=== PATIENT | male | born 1945 | race Caucasian/White ===

== ENCOUNTER 2024-10-04 09:15 | Outpatient (CLI) | payer MEDICARE, SELFPAY ==
--- OUTSIDE RECORDS SUMMARY | 2010-02-25 06:47 | XMS_ITS | Continuity of Care Document ---
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 Name Role Phone Kiesha Price MD Unavailable Unavailable Allergies, Adverse Reactions, Alerts Substance Reaction Status Criticality No Known Allergies Active No Inform ation Medications Medication Instructions Dosage Effective Dates (start - stop) Status Comments Zocor 20 mg Tab 1 tab po qd - Active SAW JACKSON (unknown strength) Not Available - Active ASPIRIN 81 MGTABLET 1 pill daily - Active Zocor 20 mg Tab 1 tab po qd - No Longer Active Procedures Procedure Date Office Exam - Limited Comprehensive Metabolic Panel 0 Lipid Panel PSA,total CBC Medication Admin Vaccine against Shingles Comprehensive Metabolic Panel 9 Lipid Panel Hemosure Well Visit (40-64) Office Exam - Intermediate Non-invasive Studies of Upper or Lower E xtremity Arteries Non-invasive Studies of Lower Extremity Arteries Well Visit (40-64) Offic/outpt E&m Estab Mod-hi 2 07 Advance Directives Directive Yes / No Effective Date File Name No Information Encounters Encounter Description Practice Location Reason(s) For Visit Diagnoses Date Provider Providers Copied on Encounter [facility], [address], [place], [place], [id number] , [place] tel: [phone] [facility] No Information 1 Albert Pop. [address] [facility], [address], [place], [place], [id number] , [place]. tel: [phone] [facility], [address], [place], [place], [id number] , [place] tel: [phone] [facility] No Information 0 Claudette Earl. [address] [place] [address], [id number] , [place]. tel: [phone] Referring Provider: Rajat Wilkins MD, [address] [place] [address], [address] . tel:[phone] Office Exam - Limited [facility], [address], [place], [id number] , [place] tel: [phone] [facility] f/u (chief complaint) No Information 0 Claudette Earl. [address] [place] [address], [id number] , [place]. tel: [phone] Referring Provider: Rajat Wilkins MD, [address] [place] [address], [address] . tel:[phone] [facility], [address], [place], [id number] , [place] tel: [phone] [facility] No Information 0 Claudette Earl. [address] [place] [address], [id number] , [place]. tel: [phone] Referring Provider: Rajat Wilkins MD, [address] [place] [address], [address] . tel:[phone] [facility], [address], [id number] , [place] tel: [phone] [facility] No Information 9 Claudette Earl. [address] [place] [address], [id number] , [place]. tel: [phone] Referring Provider: Rajat Wilkins MD, [address] [place] [address], [address] . tel:[phone] [facility], [address] [place] [address], [id number] , [place] tel: [phone] [facility] No Information 9 Claudette Earl. [address] [place] [address], [id number] , [place]. tel: [phone] Referring Provider: Rajat Wilkins MD, [address] [place] [address], [address] . tel:[phone] Well Visit (40-64) [facility], [address] [place] [address], [id number] , [place] tel: [phone] [facility] physical (chief complaint) PHYSICAL/GEN MEDICAL EXAMSCREEN FOR MALIG NEOPLASMS THE R 9 Claudette Earl. [address] [place] [address], [id number] , [place]. tel: [phone] Referring Provider: Rajat Wilkins MD, [address] [place] [address], [address] . tel:[phone] Office Exam - Intermediate [facility], [address], [id number] , [place] tel: [phone] [facility] f/u (chief complaint) No Information 9 Claudette Earl. [address] [place] [address], [id number] , [place]. tel: [phone] Referring Provider: Rajat Wilkins MD, [address] [place] [address], [address] . tel:[phone] [facility], [address] [place] [address], [id number] , [place] tel: [phone] [facility] No Information 8 Claudette Earl. [address] [place] [address], [id number] , [place]. tel: [phone] Referring Provider: Rajat Wilkins MD, [address] [place] [address], [address] . tel:[phone] Well Visit (40-64) [facility], [address] [place] [address], [id number] , [place] tel: [phone] [facility] physical (chief complaint) PHYSICAL/GEN MEDICAL EXAMDIVERTICULOSIS OF COLON W/O MENTION OF HEMORRHAGE 8 Claudette Earl. [address] [place] [address], [id number] , [place]. tel: [phone] Referring Provider: Rajat Wilkins MD, [address] [place] [address], [address] . tel:[phone] Offic/outpt E&m Estab Mod-hi 2 [facility], [address] [place] [address], [id number] , [place] tel: [phone] [facility] f/u (chief complaint) RHINITIS, NASOPHARYNGITIS COMMON COLD Martín-0 7 Claudette Earl. [address] [place] [address], [id number] , [place]. tel: [phone] Referring Provider: Rajat Wilkins MD, [address] [place] [address], [address] . tel:[phone] [facility], [address] [place] [address], [id number] , [place] tel: [phone] [facility] f/u (chief complaint) PROSTRATE HYPERTROPHY,W/ URINE O Apr- 3200 7 Claudette Earl. [address] [place] [address], [id number] , [place]. tel: [phone] Referring Provider: Rajat Wilkins MD, [address] [place] [address], [address] . tel:[phone] [facility], [address] [place] [address], [id number] , [place] tel: [phone] [facility] 3 mo f/u (chief complaint) IMPAIRED FASTING GLUCOSE Dec-1 2-200 6 Claudette Earl. [address] [place] [address], [id number] , [place]. tel: [phone] Referring Provider: Rajat Wilkins MD, [address] [place] [address], [address] . tel:[phone] [facility], [address], [place], [id number] , [place] tel: [phone] [facility] IMPAIRED FASTING GLUCOSE Sep-2 0-200 6 Claudette Earl. [address] [place] [address], [id number] , [place]. tel: [phone] Referring Provider: Rajat Wilkins MD, [address] [place] [address], [address] . tel:[phone] [facility], [address], [id number] , [place] tel: [phone] [facility] physical (chief complaint) HYPERCHOLESTEROLEMI A, PUREBLOOD PRESSURE, ELEVATED READING Sep-1 2-200 6 Claudette Earl. [address] [place] [address], [id number] , [place]. tel: [phone] Referring Provider: Rajat Wilkins MD, [address] [place] [address], [address] . tel:[phone] Family History Family Member Type Diagnosis Age At Onset Father Problem (finding) Arthritis Father Problem (finding) Cancer of the Prostate Mother Problem (finding) hypertension Immunizations Vaccine Date Status Comments Zoster administered Source: New Imm unization Record Zoster administered Source: New Imm unization Record Tdap administered Source: New Imm unization Record Payers Payer name Insurance type Covered libertarian ID Authoriza tion(s) No Information Social History Type Description Quantity Date Captured Comments Sex Male Smoking Status No Information Chief Complaint And Reason For Visit No Information Reason For Referral Reason For Referral No Information History Of Present Illness Encounter Date Complaint History Of Prese nt Illness f/u watching foods m ore carefully. blood wa lipemic. triglyceride over 1000. LDL 60 hdl 27 physical notes swelling i n feet and lower legs -worse lately f/u feeling well. physical Feeling ok f/u feeling ok. f/u last few weeks h arder to keep on diet and exercise program but prior to that was doing well. Has lost 8 lbs since October. Last 10 days back on the program 3 mo f/u goes to gym-3/we eklost 10 lbs. eating smaller portions although same foods. physical had cpe 2001. Hines d sigmoidoscopy at time. dt 11/16. on zocor for total chol of 270. Last test in 05/22 Functional Status Date Functional Assessmen t No Information Instructions Date Instruction Additional Infor mation No Information Assessments Type Assessment Date No Information Patient Care Teams Name Effective Dates (start - stop) Status Members No Information
--- OUTSIDE RECORDS SUMMARY | 2019-04-11 03:00 | XMS_ITS | Continuity of Care Document ---
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 Name Role Phone Mattie Martins MD Unavailable Unavailable Allergies, Adverse Reactions, Alerts Substance Reaction Status Criticality No Known Allergies Active No Inform ation Medications Medication Instructions Dosage Effective Dates (start - stop) Status Comments metformin ER 500 mg tablet,extended release 24 hr - Active terazosin 2 mg capsule - Active potassium chloride ER 10 mEq tablet,extended release - Active azelastine 0.15 % (205.5 mcg) nasal spray spray 1 spray by intranasal route 2 times every day in each nostril 205.5 MCG - Active amoxicillin 875 mg tablet - Active azithromycin 250 mg tablet - Active simvastatin 10 mg tablet take 1 tablet by oral route every day in the evening 10 MG - Active metformin 1,000 mg tablet take 1 tablet by oral route 2 times every day with morning and evening meals 1000 MG - Active TERAZOSIN HCL (unknown strength) take 1 capsule by oral route every day at bedtime Not Available - Active Zyrtec 10 mg tablet take 1 tablet by oral route every day 10 MG - Active Procedures Procedure Date Offic/outpt E&m Estab Mod-hi Offic/outpt E&m Estab Mod-hi Nasal endoscopy, diagnostic, unilateral or bilateral Offic/outpt E&m [facility] Advance Directives Directive Yes / No Effective Date File Name No Information Encounters Encounter Description Practice Location Reason(s) For Visit Diagnoses Date Provider Providers Copied on Encounter Offic/outpt E&m [facility], [address], [place], [id number], tel:[phone] [facility] f/u nasal obstruction (chief complaint) Nasal obstructionSnor ingBody mass index (BMI) 26.0-26.9, adult 0 Eliezer Phelps. [address] [place] [address], [id number] , [place]. tel:[phone] Referring Provider: Jasvir Gutierrez MD, [id number] u[facility], [place], [address]. tel:[phone] Offic/outpt E&m [facility], [address] [place] [address], [id number], [place] tel:[phone] [facility] f/u nasal obstruction (chief complaint) Nasal obstructionSnor ingBody mass index (BMI) 26.0-26.9, adult 0 Eliezer Phelps. [address] [place] [address], [id number] , [place]. tel:[phone] Referring Provider: Jasvir Gutierrez MD, [id number] u[facility], [place], [address]. tel:[phone] Offic/outpt E&m [facility], [address] [place] [address], [id number], [place] tel:[phone] [facility] BACK TENDER Sleep Apnea (chief complaint) SnoringNasal septal deviationNasal obstructionChro daren rhinitisBody mass index (BMI) 26.0-26.9, adult Dec-3 201 9 Eliezer Phelps. [address] [facility] [address], [place], [place], [id number] , [place]. tel: [phone] Referring Provider: Jasvir Gutierrez MD, [id number] u[facility], [place], [address]. tel:[phone] Family History Family Member Type Diagnosis Age At Onset Problem (finding) No family history of He aring disorder Immunizations Vaccine Date Status Comments Flu trivalent adjuvanted pfree administer ed Source: Other Registry PCV13 administered Source: Other R egistry Flu high dose pfree administered Source: Other Registry Payers Payer name Insurance type Covered republican ID Authoriza tion(s) Medicare [id number] [facility] PPO [id number] Social History Type Description Quantity Date Captured Comments Alcohol Use Details Unknown Caffeine Use Details Unknown Tobacco Use Status Ex-cigarette smoker 020 Smoking Status Former smoker Sex Male Vital Signs Date / Time: Height Weight BMI Pulse Rate Blood Pressure Temperature Respiratory Rate Body Surface Area Head Circumference Head Circ. Percentile Wt./Geovani. Percentile BMI percentile Pulse Ox Inhaled Ox 8:03 AM 78.00 in 104.326 kg (230.00 lbs) 26.5 8 kg/m eter (2) 72 /min 130/76 mm[Hg] Chief Complaint And Reason For Visit From encounter dated '04/11/2019 08:00'. f/u nasal obstruction (chief complaint). Description: Patient reports that his symptoms have not improved greatly with Azelastine. He endorses slight improvement with OTC Flonase, improvement with allergy sympotms and decreased nasal inflammation. He reports that his CC is open-mouth breathing at night. He reports that at this time, he is not eager to pursue surgery. He states that the left nostril is more obstructed than his right Reason For Referral Reason For Referral No Information Plan Of Treatment Date Type Action Status Goal H&P. Due on due Goal FOBT. Due on due Goal Colonoscopy. Due on due Goal Lipid panel. Due on due Goal Abdominal ultrasound. Due on due Goal Dietary management education , guidance, and counseling completed Goal Abdominal ultrasound. Due on due Goal Colonoscopy. Due on due Goal H&P. Due on due Goal FOBT. Due on due Goal Lipid panel. Due on due Goal Lipid panel. Due on due Goal FOBT. Due on due Goal Abdominal ultrasound. Due on due Goal H&P. Due on due Goal Colonoscopy. Due on due Goal Dietary management education , guidance, and counseling completed Goal Abdominal ultrasound. Due on due Goal Colonoscopy. Due on due Goal FOBT. Due on due Goal H&P. Due on due Goal Lipid panel. Due on due Goal Dietary management education , guidance, and counseling completed Goal Tobacco cessation counseling completed History Of Present Illness Encounter Date Complaint History Of Prese nt Illness f/u nasal obstruction Patient re ports that his symptoms have not improved greatly with Azelastine. He endorses slight improvement with OTC Flonase, improvement with allergy sympotms and decreased nasal inflammation. He reports that his CC is open-mouth breathing at night. He reports that at this time, he is not eager to pursue surgery. He states that the left nostril is more obstructed than his right f/u nasal obstruction The patien t reports that his symptoms have not improved since the previous visit. He has been compliant using Azelastine, which he states improves his symptoms. His reports that he snores. Denies previous sinus surgery or using OTC Flonase. BACK TENDER Sleep Apnea Patient reports snoring while sleeping, witnessed by his . His previous sleep study, obtained at [facility], indicated that he did not have sleep apnea. Sleep study performed 3 years did reveal sleep apnea to which he was prescribed a CPAP. After using CPAP, he did not notice a significant difference in lethargy and snoring thru the day. He was also recommended Ritalin to aid with patient's daytime drowsiness. Intermittently endorses restlessness will sleeping. He reports difficulty breathing adequately at night through his nose in addition to through out the day and while exercising. He has tried a chin strap and Breathe Right Strips for this. Denies prior nasal surgery, nasal fracture, use of Flonase Functional Status Date Functional Assessmen t Pain Score 0/10 Instructions Date Instruction Additional Infor mation -Sleep with upper to rso elevated -As above Related to Snoring -Continue to use William nase (OTC) -Continue nasal saline rinses -Discontinue Azelastine -Advsied to tighten chin strap at night to avoid mouth breathing Related to Nasal obstruction Dietary management e ducation, guidance, and counseling Related to Body mass index (BMI) 26.0-26.9, adult - As above Related to Snori ng - Follow up in 1 thu - Advised patient to use OTC Flonase and Azelastine Related to Nasal obstruction Dietary management e ducation, guidance, and counseling Related to Body mass index (BMI) 26.0-26.9, adult - Obtain Azelastine from pharmac y Related to Chronic rhinitis - OTC Nasal Saline R inses recommended daily- OTC Flonase recommended, 1 spray per nostril twice daily - Follow up in 1 month Related to Nasal obstruction Dietary management e ducation, guidance, and counseling Related to Body mass index (BMI) 26.0-26.9, adult Assessments Type Assessment Date assessment Nasal obstruction assessment Snoring assessment Body mass index (BMI) 26.0-26.9, adult impression Physical exam reveal ed bilateral septal curvature and widening of the septum, small blood and mucus on the left side, no nasal valve collapse noted. Disccused treatment options including surgery. Questions solicited and answered. Patient is not eager to pursue surgery at this time. Advised patient to use OTC Flonase 2 sprays once a day, direct spray outwards towards ear. Stop Azelastine spray since patient is not improving. Advised patient to tighten chin strap in order to keep mouth closed at night. impression Subjectively positiv e. Advised patient that treating his nasal inflammation will improve his snoring. Advised patient to sleep with his upper torso elevated Mental Status Date Cognitive Assessment Normal Orientation Patient Care Teams Name Effective Dates (start - stop) Status Members No Information
--- OUTSIDE RECORDS SUMMARY | 2020-06-06 05:00 | XMS_ITS | Continuity of Care Document ---
Author Organization [facility] Address [address] [place] [address] [address], [place] [address] Phone Care Team Providers Care Adoption Manager Name Role Phone Kraig Persaud MD Unavailable Unavailable Allergies, Adverse Reactions, Alerts Substance Reaction Status Criticality No Known Allergies Active No Inform ation Medications Medication Instructions Dosage Effective Dates (start - stop) Status Comments metformin ER 500 mg tablet,extended release 24 hr take 1 tablet by ORAL route 2 times every day with breakfast and dinner 500 MG - Active simvastatin 10 mg tablet take 1 tablet by oral route every day in the evening 10 MG - Active ZYRTEC (unknown strength) Not Available - Active TAMSULOSIN HCL (unknown strength) Not Available - Active AZELASTINE HCL (unknown strength) Not Available - Active Procedures Procedure Date Offic/outpt E&m Estab Minor Anoscopy; Dx W/wo Specmn (oct 1 Offic/outpt E&m Estab Low-mod 1 Colonoscopy Flex; W/bx 1/mx Moderate Sedation Service For Gastro Feb Moderate Sedation Service Over 15 Mins J Anoscopy; Dx W/wo Specmn (oct 9 Offic/outpt E&m New Mod-hi Offic/outpt E&m Estab Minor 10 16 Procsigmoscopy Rigid; Dx (oct 6 Offic/outpt E&m Estab Low-mod 6 Advance Directives Directive Yes / No Effective Date File Name No Information Encounters Encounter Description Practice Location Reason(s) For Visit Diagnoses Date Provider Providers Copied on Encounter Offic/outpt E&m Estab Minor [facility], [address] [facility] [place], [place], [place], [id number], [place] tel:[phone] [facility] f/u Diarrhea* (chief complaint) Diarrhea, unspecifiedHx of colonic polyps 1 Hung Cornell. [address], [place], [place], [id number] , [place]. tel:[phone] Referring Provider: Rajat Wilkins MD, [address] [place] [address], [address] . tel:[phone] Offic/outpt E&m Estab Low-mod [facility], [address] [place] [address], [address], [place], [place], [id number], [place] tel:[phone] [facility] Irregular bowel movement* (chief complaint) Diarrhea, unspecifiedHx of colonic polyps 1 Hung Cornell. [address], [place], [place], [id number] , [place]. [phone] Referring Provider: Rajat Wilkins MD, [address] [place] [address], [address] . tel:[phone] [facility], [address] [place] [address], [address], [place], [place], [id number], [place] tel:[phone] [facility] No Information 0 Hung Cornell. [address], [place], [place], [id number] , [place]. [phone] Referring Provider: Rajat Wilkins MD, [address] [place] [address], [address] . tel:[phone] Offic/outpt E&m New Mod-hi [facility], [address] [facility] [place] [address], [place], [place], [id number], [place] tel:[phone] [facility] Bowel movements * (chief complaint) Change in bowel habitHx of colonic polyps 9 Ng MD Cornell. [address], [place], [place], [id number] , [place]. tel:[phone] Referring Provider: Rajat Wilkins MD, [address] [place] [address], [address] . tel:[phone] Offic/outpt E&m Estab Minor 10 [facility], [address] [facility] [place] [address], [place], [place], [id number], [place] tel:[phone] [facility] change in bowel habits* (chief complaint) Change in bowel habitHx of colonic polyps 6 Hung Cornell. [address], [place], [place], [id number] , [place]. tel:[phone] Referring Provider: Rajat Wilkins MD, [address] [place] [address], [address] . tel:[phone] [facility], [address] [place] [address], [address], [place], [place], [id number], [place] tel:[phone] [facility] Default No Information 6 Provider [facility]. . Offic/outpt E&m Estab Low-mod [facility], [address] [facility] [place], [place], [place], [id number], [place] tel:[phone] [facility] Change in bowel habits (chief complaint) Change in bowel habitHx of colonic polyps 6 Hung Cornell. [address], [place], [place], [id number] , [place]. [phone] Referring Provider: Rajat Wilkins MD, [address] [facility], [place], [address] . tel:[phone] Family History Family Member Type Diagnosis Age At Onset Father Problem (finding) No history of Cancer, c olon Payers Payer name Insurance type Covered alliance party ID Authormaria dolores guerrero(s) Medicare MB [id number] [facility] [place] PPO [id number] Social History Type Description Quantity Date Captured Comments Alcohol Use Details 1 drink daily Caffeine Use Details Unknown Tobacco Use Status Ex-cigarette smoker Smoking Status Former smoker Smoking Tobacco Use Details Cigarette: Age Stopped: 17 Cigarette: 40 Cigarettes per day Sex Male Vital Signs Date / Time: Height Weight BMI Pulse Rate Blood Pressure Temperature Respiratory Rate Body Surface Area Head Circumference Head Circ. Percentile Wt./Geovani. Percentile BMI percentile Pulse Ox Inhaled Ox 10:03 AM 77.00 in 107.048 kg (236.00 lbs) 27.9 9 kg/m eter (2) 140/68 mm[Hg] 98.00 F Chief Complaint And Reason For Visit From encounter dated '06/06/2020 10:00'. f/u Diarrhea* (chief complaint). Description: doing better. OFF METFORMIN. NO N V F C. BM REGULARBMFORMED OCC SOFTER NO [id number] 75/6 [id number] 100/5 RY/TICS Reason For Referral Reason For Referral No Information Plan Of Treatment Date Type Action Status Goal Colonoscopy. Due on due Goal Abdominal ultrasound. Due on due Goal H&P. Due on due Goal Lipid Panel. Due on due Goal FOBT. Due on due Goal Colonoscopy. Due on due Goal Abdominal ultrasound. Due on due Goal H&P. Due on due Goal Lipid Panel. Due on 021 due Goal FOBT. Due on due Goal Colonoscopy. Due on due Goal FOBT. Due on due Goal Abdominal ultrasound. Due on due Goal Lipid Panel. Due on 019 due Goal H&P. Due on due Goal Abdominal ultrasound. Due on due Goal Lipid Panel. Due on due Goal FOBT. Due on due Goal H&P. Due on due Goal Colonoscopy. Due on due Future Order: Lab Order CULTURE STOOL ([id number]), Sent on: Sent Future Order: Lab Order O+P x3 ([id number]) , Sent on: Sent Future Order: Lab Order CDT ([id number]), S ent on: Sent History Of Present Illness Encounter Date Complaint History Of Prese nt Illness f/u Diarrhea* doing better. OF F METFORMIN. NO N V F C. BM REGULARBM FORMED OCC SOFTER NO [id number] 75/6 [id number] 100/5 RY/TICS Irregular bowel movement* HAS EX PLOSIVE DIARRHEA. OCCURS 3-7/DAY. INCREASED FIBER AND FLUIDS. HAS YOGURT AND MILK WITH CEREAL. BMS ARE LOOSE. NO ABDOMINAL PAIN CRAMPS NO BLEEDING. NO STOOL TESTING DONE. ON SIMVOSTATIN. ON METFORMIN. 20 75/6 [id number] 100/5 RY/TICS Bowel movements * The patient chambers s:Nausea vomiting fevers or chills? none2-3 bowel movements per day.Irregular bowel movements? noneChange in bowel habits? 2 MONTH AGO CHUNKY WATERY BMS URGENCY AND NOW RESOLVED. NO TRAVEL NO UNUSUAL FOODS. WAS ON ABX June ZPAK. IMPROVED IN 3 WEEKS. Stools are normal.Bloating, gas? noneAbdominal pain? 2 MONTH AGODiarrhea? DURING RECENT EPISODEConstipation? noneRectal bleeding? noneRectal pain? noneSwelling? noneProtrusion? noneAnal drainage? noneAnorectal itching? noneFecal incontinence? nonePatient eats a MILD MOD fiber diet. OAT BRANPrior anorectal problems? none Prior colon problems? POLYPSColonoscopy in the past? 14 100/5 RY/TICSTakes anorectal medicines? none change in bowel habits* DIARRHEA ; WAS TAKING METFORMIN. NOW ON ENTERIC SLOW RELEASE METFORMIN; OCC EXPLOSIVE BM WITH SPICY FOOD; GOOD BOWEL CONTROL; BMS ARE FIRMER. Change in bowel habits The patie nt has:Nausea vomiting fevers or chills? none2-3 bowel movements per day. SOFT-LOOSE NOW 5-7Irregular bowel movements? noneChange in bowel habits? PAST 4-6 WEEKS EXPLOSIVE BMSStools areMUSH/CHUNKS; FLUIDS; URGENCYBloating, gas? noneAbdominal pain? noneDiarrhea? LOOSE BMSConstipation? noneRectal bleeding? noneRectal pain? noneSwelling? noneProtrusion? OCC WITH FREQUENT BMAnal drainage? noneAnorectal itching? noneFecal incontinence? none URGENCY; 2 EPISODES INCONTINENCEPatient eats a MILD fiber diet. V>F; SHREDDED WHEAT; OATMEAL ARTICHOKES. DAIRY PRODUCTS. Prior anorectal problems? none Prior colon problems? HYPColonoscopy in the past? 14 100/5 RY/TICSTakes anorectal medicines? noneMETFORMIN STARTED 2 MONTHS AGO; NO TRAVEL; NO ILL CONTACTS. Functional Status Date Functional Assessmen t No Information Instructions Date Instruction Additional Infor mation RESOLVED CONT HFD FLUIDS Related to Diarrhea, unspecified CS 2023 Related to Hx of colonic polyps patient education an d instructions provided by Dr. Persaud Related to Diarrhea, unspecified CS 2024 Related to Hx of colonic polyps patient education an d instructions provided by Dr. Persaud Related to Diarrhea, unspecified Colonoscopy recommen ded. Discussed risks including but not limited to bleeding, infection, perforation, polypectomy, and anesthetic risks. Patient opts to proceed. All questions answered. Given preparation instructions. Instructed not to take ASA, NSAIDS, PLAVIX FOR 10 DAYS, COUMADIN FOR 4 DAYS. INFORMED TO TAKE HALF THE DOSAGE OF RX FOR DIABETES ON DAY OF PREP AND NO DIABETES RX ON MORNING OF CS.MG CITRATE PREP GIVEN. Related to Hx of colonic polyps NOW RESOLVED. POSSIB LY RELATED TO ABX ?C DIFF. REC PROBIOTICS WITH ABX IN THE FUTURE. Related to Change in bowel habit patient education an d instructions provided by Dr. Persaud Related to Change in bowel habit DOING BETTER; CONT H FD; AVOID SPICY FOODS Related to Change in bowel habit FU 3 YEARS SOONER PRN Related to Hx of colonic polyps patient education an d instructions provided by Dr. Persaud Related to Hx of colonic polyps HFD FLUIDS; BULKING AGENTS; INFORMED POSSIBILITIES RE CHANGE IN BOWEL HABITS INCLUDING DIETARY, MEDICATIONS (METFORMIN), INFLAMMATORY/NEOPLASTIC CHANGES; PT WILL DW DR WILKINS RE DC METFORMIN; HOLD DAIRY PRODUCTS; INCREASE FIBER; IF EXPLOSIVE BMS CONTINUE WOULD REC CS TO REEVALUATE; FU 6 WEEKS; SOONER PRN Related to Change in bowel habit CS IN 4 YEARS. Related to Hx of colonic polyps Assessments Type Assessment Date assessment Diarrhea, unspecified 1 assessment Hx of colonic polyps Patient Care Teams Name Effective Dates (start - stop) Status Members No Information
--- OUTSIDE RECORDS SUMMARY | 2021-05-30 07:01 | XMS_ITS | Continuity of Care Document ---
Author Organization Momo Gordon MD, [facility] Address [id number] [place] [address] Phone Care Team Providers Care Manager Part Name Role Phone Evan OCONNOR, Momo Unavailable Unavailable Allergies, Adverse Reactions, Alerts Substance Reaction Status Criticality No Known Allergies Active No Inform ation Medications Medication Instructions Dosage Effective Dates (start - stop) Status Comments tamsulosin 0.4 mg capsule take 2 capsule by oral route every day 1/2 hour following the same meal each day 0.8 MG - Active Procedures Procedure Date OFFICE VISIT NEW PAT. Advance Directives Directive Yes / No Effective Date File Name No Information Encounters Encounter Description Practice Location Reason(s) For Visit Diagnoses Date Provider Providers Copied on Encounter Momo Gordon MD, [facility], [address] [place] [address], [id number], [place] tel:[phone] Momo Gordon MD, [facility]. No Information 2 Evan Barr. [address] [place] [address], [id number], [place]. tel:[phone] Referring Provider: Shana Reagan MD, [address] [facility] [address], [place], [address] . tel:[phone] OFFICE VISIT NEW PAT. Momo Gordon MD, [facility], [address] [place] [address], [place], [place], [id number], [place] tel:[phone] Momo Gordon MD, [facility] New Patient (chief complaint) Interstitial lung diseasePulmonary nodulesSleep apnea, obstructive Evan Barr. [address] [facility] [address], [place], [place], [id number], [place]. tel:[phone] Referring Provider: Shana Reagan MD, [address] [facility] [address], [place], [address] . tel:[phone] Family History Family Member Type Diagnosis Age At Onset Mother Problem (finding) Father Problem (finding) Payers Payer name Insurance type Covered republican ID Authoriza tion(s) Medicare [id number] [id number] Social History Type Description Quantity Date Captured Comments Alcohol Use Details Unknown Caffeine Use Details Unknown Tobacco Use Status No Information Smoking Status No Information Sex Male Chief Complaint And Reason For Visit No Information Reason For Referral Reason For Referral No Information Plan Of Treatment Date Type Action Status Goal Lipid Panel. Due on due Goal Colonoscopy. Due on due Goal Abdominal ultrasound. Due on due Goal FOBT. Due on due Goal H&P. Due on due Goal Colonoscopy. Due on due Goal Lipid Panel. Due on due Goal FOBT. Due on due Goal H&P. Due on due Goal Abdominal ultrasound. Due on due Future Order: Lab Order SED rate , automated ([id number]), Sent on: Sent Future Order: Lab Order RA FACTOR ([id number]), Sent on: Sent Future Order: Lab Order C-REACTI VE PROTEIN ([id number]), Sent on: Sent Future Order: Lab Order SCL-70 A NTIBODY ([id number]), Sent on: Sent Future Order: Lab Order CCP ([id number]), S ent on: Sent Future Order: Lab Order Myositis AssessR plus Linda-1 Antibodies ([id number]), Sent on: Sent History Of Present Illness Encounter Date Complaint History Of Prese nt Illness New Patient The symptoms beg an 40 years ago and generally lasts 40 Years. The symptoms are reported as being moderate. The symptoms occur randomly. Aggravating factors include respiratory infections. Relieving factors include Antibiotics or steroids. Associated symptoms include cough, fever. Pertinent negatives include wheezing, weight loss. He states the symptoms are chronic and are fairly controlled. Here with his . He spends 6 months a year in [place] in [place] farm area, and is in [place] usually early January through early June. He returns every 6 weeks to the local area.Since age 32 he has had bronchitis whenever he would get a cold, 2-3 times a year at first and now 1-2 times a year. In his 30s and 40s he would get high fever and delierium, not not as high a fever. He would usually get antibiotics, but he had a steroid once in March 2018 after a trip to [place], once in 2016 after a trip to [place], and as well after an episode on . His PCR Covid test was negative at the time. With these episodes, he has been given inhalers but not in years. He has never definitively been said to have pneumonia, and as a child did not have pneumonias or asthma problems. He is not short of breath and is able to exercise usually, he had stopped for a while but just started up again. He has not had fevers, chills or drenching sweats Since the episode in January. He has not coughed up any blood and has not lost significant amounts of weight.In early February after recovering from his January episode of coughing, a chest x-ray was performed and suggested possible interstitial disease which led to a CT scan. Because of this, he was referred to me.He is on longer coughing. He has no more mucus. He is not short of breath except up and down stairs, which he believes is because he has not been exercising recently. and his seems to think he did have some exertional dyspnea up and down stairs before, although if so he was unaware of it. He himself notices that he gets short of breath carrying heavier objects. He is not wheezing. He feels fine.He spends 6 months out of the year for the last 5-10 years at a second home in [facility] [place] in [place]. 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 He has had episodes of bronchitis since his 30s. In his 30s and 40s he often have high fevers and delirium with these episodes. He usually be treated with antibiotics. They would happen several times a year. More recently they only happen 2-3 times a year, and again are usually treated with antibiotics although a couple of times he had some steroids for them. The most recent episode was in January. He did not have Covid based upon PCR testing. He had cough and mucus along with a lower grade fever. He received steroids for this episode but not antibiotics. Due to the findings on his CT scan, he was referred to see me. He now feels his normal self. He has some very minor shortness of breath carrying heavy objects and perhaps up and down stairs, he is just about to get back into exercising. He currently has no cough or mucus. He has not lost weight. He feels his normal self. He notes that the sister has bronchiectasis for many years, she lives in [place].PULMONARY AND MEDICAL HISTORY:Interstitial Lung DiseaseSeasonal AllergiesSleep ApneaRestless Leg SyndromeLiver DiseaseBPHPULMONARY MEDICATIONS:S/P CPAP, stopped around 2018, borderline diseaseNON PULMONARY MEDICATIONS: Tamsulosin 0.8 mg dailySMOKING: Ages 21 to 24, 1.5 PPD (4.5 pack years)EXACERBATIONS:Jan 2021, PredPFTs FEV1 FVC FEV1/FVC FEF 25- 3.66L(93%) 4.91L(91%) 75% 2.78L(96%) NormalSLEEP EIQPXPS99/3/19: AHI 0.5OCIMETRY, O2 SATURATION on room air04/01/21: 95%X-RAYS:CT Chest 02/23/20 [facility]: Peripheral/subpleural interstitial thickening. These findings are most pronounced at the lung bases. Possible but not definite traction bronchiectasis. No honeycombing. 5 mm nodule left lower lobe (series 5 image 67). 3-4 mm Lingular nodule. 1.0 cm short axis right infrahilar and 0.8 cm short axis lymph nodesCXR 02/19/21 [facility]: Peripheral and basilar predominant reticular interstitial changes, most likely reflecting chronic interstitial lung disease. No prior imaging available for dabvylucmy52/11/17: Lungs clearLABS:02/20/21: BUN/Cr 13/1.07, eGFR 68, LDTs nl, UA benign, Vit D 20.6, HgA1C 5.8, PSA 1.1 WBC 7200, Hg 15.0VACCINES: Flu Shot Oct 2020. Pneumovax 23 around 2007. Moderna, Covid Vaccine Feb 2020, Mar 2020, booster OctERTINENT PHYSICAL FINDINGS: Subtle basilar velcro rales, no wheezes. No murmurs. No edema Functional Status Date Functional Assessmen t No Information Instructions Date Instruction Additional Infor mation No Information Assessments Type Assessment Date No Information Patient Care Teams Name Effective Dates (start - stop) Status Members No Information
--- OUTSIDE RECORDS SUMMARY | 2023-06-03 04:30 | XMS_ITS ---
Author Organization [facility] Address [address] [place] [address] Care Team Providers Care Systems Lead Name Role Phone Shana HOYOS Primary Care Provider Roger Niño, Donal Unavailable [phone] REASON FOR VISIT se Encounters Encounter Location Date Provider Diagnosis [facility] [address] [place] [address] 06/03/2023 Donal Berry Plan Of Treatment No Information Progress Notes * DANIELLERoney Ramandeep JrDOB:[birth year] (79 yo M)Acc No.[id number]:06/03/2023 Patient: Roney GOMEZ Provider: Karen Berry M.D., RupertoCChemaPChema, F.A.C.C. :1945 A ge:77 Y S ex:Male Date:06/03/2023 Address:[address] [place], [place] [phone] Pcp:Shana HOYOS Subjective: * Chief Complaints: * 1 . Se. * Medical History: Objective: * Vitals: Assessment: Plan: * Treatment: * Images: * Electronic signature of Chidi Berry M.D., MD on 10/04/2024 at 07:36 AM PDT Sign off status: Pending * Provider: Karen Berry M.D., RupertoCChemaPChema, F.A.C.C. Date: 0 06/03/2023 Generated for Printing/Faxing/eTransmitting on: 0 10/04/2024 07:36 AM PDT
--- OUTSIDE RECORDS SUMMARY | 2023-08-25 05:15 | XMS_ITS ---
Author Organization [facility] Address [address] [place] [address] Care Team Providers Care Hand Plate Stacker Name Role Phone Shana HOYOS Primary Care Provider Roger Niño, Donal Unavailable [phone] REASON FOR VISIT 3m/fu/labs Encounters Encounter Location Date Provider Diagnosis [facility] [address] [place] [address] 08/25/2023 Donal Berry Plan Of Treatment No Information Progress Notes * Roney PENA JrDOB:[birth year] (79 yo M)Acc No.[id number]:08/25/2023 Progress Notes Patient: Roney GOMEZ Provider: Karen Berry M.D., RupertoCChemaPChema, F.A.C.C. :1945 A ge:77 Y S ex:Male Date:08/25/2023 Address:[address] [place] [id number] Pcp:Shana HOYOS Subjective: * Chief Complaints: * 1 . 3m/fu/labs. * Medical History: Objective: * Vitals: Assessment: Plan: * Treatment: * Images: * Electronic signature of Chidi Berry M.D., MD on 10/04/2024 at 07:35 AM PDT Sign off status: Pending * Provider: Karen Berry M.D., RupertoCChemaPChema, F.A.C.C. Date: 0 08/25/2023 Generated for Printing/Faxing/eTransmitting on: 0 10/04/2024 07:35 AM PDT
--- OUTSIDE RECORDS SUMMARY | 2024-01-16 04:00 | XMS_ITS ---
Author Organization [facility] Address [address] [place] [address] Care Team Providers Care Marshmallow Runner Name Role Phone Dr. Nida Castillo Primary Care Provider [phone] Migration, Provider Unavailable Unavailable REASON FOR VISIT [facility] Encounters Encounter Location Date Provider Diagnosis [facility] [address] [place] [address] 01/16/2024 Provider Migration Plan Of Treatment Medication Medication Name Sig Start Date Stop Date Notes Simvastatin 10 MG Tablet 1 Oral every da y; Duration: 0 11/03/2022 11/03/2022 EXEL SYRINGE 3 mL 25 gauge x 1 SYRINGE, EMPTY DISPOSABLE MISCELLANEOUS; Duration: 0 01/12/2024 01/12/2024 *Reorder from [employer] for eRx and Interaction Alerts* Tamsulosin HCl 0.4 MG Capsule 2 Oral every day; Duration: 0 12/04/2021 12/16/2023 ,discontinuereason:D iscontinued ECLIPSE SYRINGE 3 mL 25 gauge x 1 SYRINGE, EMPTY DISPOSABLE MISCELLANEOUS; Duration: 90 11/03/2022 10/28/2023 *Reorder from [employer] for eRx and Interaction Alerts* metFORMIN HCl ER 500 mg Tablet Extended Release 24 Hour 1 Oral two times a day; Duration: 0 12/04/2021 12/04/2021 ,discontinuereason:D iscontinued Vitamin D (Ergocalciferol) 1.25 MG (96199 UT) Capsule 1 Oral once a week; Duration: 0 10/24/2022 10/24/2022 Rx Refill Request,discontinuer elsy:Refilled Cyanocobalamin 1000 MCG/ML Solution 1 Injection biweekly; Duration: 90 07/27/2023 07/27/2023 Rx Refill Request,discontinuer elsy:Refilled Next Appt Details Provider Name:Dr. Nida fierro, 12/22/2024 11:15:00 AM, [facility], [place], [address], [phone] Provider Name:Dr. Nida fierro, 07/27/2025 10:00:00 AM, [facility], [place], [address], [phone] Progress Notes * Roney PENA HDOB:[birth year] (79 yo M)Acc No.[id number]:01/16/2024 Patient: Roney GOMEZ :1945 A ge:78 Y S ex:Male Phone: Address:[address] [place] [address], [place], [address] * Refills Stop Cyanocobalamin Solution, 1000 MCG/ML, Injection, 26, 1, biweekly, 90 Stop Simvastatin Tablet, 10 MG, Oral, 1, every day, 0 Stop EXEL SYRINGE SYRINGE, EMPTY DISPOSABLE, 3 mL 25 gauge x 1, MISCELLANEOUS, 1, 0 Stop Tamsulosin HCl Capsule, 0.4 MG, Oral, 2, every day, 0 Stop ECLIPSE SYRINGE SYRINGE, EMPTY DISPOSABLE, 3 mL 25 gauge x 1, MISCELLANEOUS, 6, 90 Stop EXEL SYRINGE SYRINGE, EMPTY DISPOSABLE, 3 mL 25 gauge x 1, MISCELLANEOUS, 26, 0 Stop Cyanocobalamin Solution, 1000 MCG/ML, Injection, 5, 0 Stop EXEL SYRINGE SYRINGE, EMPTY DISPOSABLE, 3 mL 25 gauge x 1, MISCELLANEOUS, 3, 0 Stop EXEL SYRINGE SYRINGE, EMPTY DISPOSABLE, 3 mL 25 gauge x 1, MISCELLANEOUS, 26, 0 Stop Cyanocobalamin Solution, 1000 MCG/ML, Injection, 3, 1, Monthly, 90 Stop Cyanocobalamin Solution, 1000 MCG/ML, Injection, 1, 1, Monthly, 30 Stop Simvastatin Tablet, 10 MG, Oral, 90, 1, every day, 0 Stop Cyanocobalamin Solution, 1000 MCG/ML, Injection, 26, 1, biweekly, 90 Stop EXEL SYRINGE SYRINGE, EMPTY DISPOSABLE, 3 mL 25 gauge x 1, MISCELLANEOUS, 26, 0 Stop Cyanocobalamin Solution, 1000 MCG/ML, Injection, 0 Stop EXEL SYRINGE SYRINGE, EMPTY DISPOSABLE, 3 mL 25 gauge x 1, MISCELLANEOUS, 0 Stop Vitamin D (Ergocalciferol) Capsule, 1.25 MG (46588 UT), Oral, 12, 1, once a week, 0 Stop metFORMIN HCl ER Tablet Extended Release 24 Hour, 500 mg, Oral, 1, two times a day, 0 Subjective: * Chief Complaints: * E [facility] * * Date:
--- OUTSIDE RECORDS SUMMARY | 2024-01-17 04:00 | XMS_ITS ---
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 Nida Castillo Primary Care Provider [phone] Migration, Provider Unavailable Unavailable Allergies No Known Allergies REASON FOR VISIT [facility] Medications Medication SIG (Take, Route, Frequency, Duration) Notes Start Date End Date Status Fexofenadine HCl 180 MG Tablet 1 Oral every day; Duration: 0 12/04/2021 Active Vitamin D3 25 MCG (1000 UT) Capsule 2 Oral every day; Duration: 0 12/04/2021 Active Azelastine HCl 137 MCG/SPRAY Solution Nasal; Duration: 0 12/04/2021 Act latha Cyanocobalamin 1000 MCG/ML Solution 1 Injection biweekly; Duration: 90 01/12/2024 04/10/2024 Active Social History Social History Additional Details Category Social Info Options Details Migrated Social History Migrated Social History Tobacco history:Former smoker ,notes : 2 ppd x 4 yrs , Marital status: Encounters Encounter Location Date Provider Diagnosis [facility] [address] [place] [address] 01/17/2024 Provider Migration Plan Of Treatment Next Appt Details Provider Name:Dr. Nida fierro, 12/22/2024 11:15:00 AM, [address] [place] [address] [place], [address], [phone] Provider Name:Dr. Nida fierro, 07/27/2025 10:00:00 AM, [employer] [facility], [place], [address], [phone] Progress Notes * Roney PENA HDOB:[birth year] (79 yo M)Acc No.[id number]:01/17/2024 Patient: Roney GOMEZ :1945 A ge:78 Y S ex:Male Phone: Address:[facility], [place], [address] Subjective: * Chief Complaints: * E MR[facility] * Surgical History: knee surgery ,notes : arthroscopy, left wrist surgery ,notes : right, 2014 hand surgery ,notes : bilateral hand surgery * Family History: F ather: Prostate Cancer. * Social History: M igrated Social History: M igrated Social History: Tobacco history:Former smoker ,notes : 2 ppd x 4 yrs,Marital status:. * Medications: T akingAzelastine HCl 137 MCG/SPRAY Solution Nasal Cyanocobalamin 1000 MCG/ML Solution 1 Injection biweekly , stop date 04/10/2024Fexofenadine HCl 180 MG Tablet 1 Oral every day Vitamin D3 25 MCG (1000 UT) Capsule 2 Oral every day Taking Azelastine HCl 137 MCG/SPRAY Solution Nasal Taking Cyanocobalamin 1000 MCG/ML Solution 1 Injection biweekly , stop date 04/10/2024Taking Fexofenadine HCl 180 MG Tablet 1 Oral every day Taking Vitamin D3 25 MCG (1000 UT) Capsule 2 Oral every day * Allergies: N .K.D.A. * * Date:
--- OUTSIDE RECORDS SUMMARY | 2024-04-19 08:45 | XMS_ITS | Continuity of Care Document ---
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 Name Role Phone Shana Reagan MD Unavailable Unavailable Allergies, Adverse Reactions, Alerts Substance Reaction Status Criticality No Known Allergies Resolved No Inform ation Medications Medication Instructions Dosage Effective Dates (start - stop) Status Comments rosuvastatin 5 mg tablet take 1 tablet by oral route every day 5 MG - Active azelastine 137 mcg (0.1 %) nasal spray aerosol spray 2 spray by intranasal route 2 times every day in each nostril - Active tamsulosin 0.4 mg capsule take 2 capsule by oral route every day 1/2 hour following the same meal each day 0.8 MG - Active Shingrix (PF) 50 mcg/0.5 mL intramuscular suspension, kit inject 0.5 milliliter by intramuscular route once once repeat 0.5 mL dose 2 to 6 months after the first dose (total of 2 doses) 50 MCG - Active Vitamin D3 4,000 unit capsule - Active simvastatin 10 mg tablet TAKE 1 TABLET BY MOUTH EVERY DAY IN THE EVENING - No Longer Active Procedures Procedure Date Annual wellness visit, includes a person alized pre Offic/outpt E&m Estab Low-mod Complexity Add-on E/M visit Offic/outpt E&m Estab Low-mod 4 Complexity Add-on E/M visit Annual wellness visit, includes a person alized pre Annual wellness visit, includes a person alized pre Annual wellness visit, includes a person alized pre Video Visit 52588 Annual wellness visit, includes a person alized pre Admin Pneumococ Vac-no Phys Sr 19 Prevnar 13 Admin Of Flu Vaccine Influenza Vaccine, Inactivated Subunit, Adjuvanted Offic/outpt E&m Estab Low-mod 9 Ecg-routine 12 Lead; W/intrpt 8 Offic/outpt E&m Estab Mod-hi 2 18 Annual wellness visit, includes a person alized pre Offic/outpt E&m Estab Low-mod 8 Executive Audiogram Executive Vision Screening Executive Treadmill Stress Test 017 Offic/outpt E&m Estab Mod-hi 2 17 Offic/outpt E&m Estab Low-mod 6 Offic/outpt E&m Estab Low-mod 6 Offic/outpt E&m Estab Low-mod 6 Offic/outpt E&m Estab Mod-hi 15 Offic/outpt E&m Estab Low-mod 5 Screening Test Pure Tone Air O 15 Executive Spirometry Executive Treadmill Stress Test 015 Executive Vision Screening Executive Blood Draw Offic/outpt E&m Estab Low-mod 4 Offic/outpt E&m Estab Low-mod 4 Pneumococcal Polysacch Vac-chela 14 Admin Pneumococ Vac-no Phys Sr 14 FOBT Medication Admin Vaccine against Tdap Well Visit (>65) Offic/outpt E&m Estab Mod-hi 2 11 EKG Office Exam - Intermediate Office Exam - Limited Lipid Panel Comprehensive Metabolic Panel 0 CBC PSA,total Vaccine against Shingles Medication Admin Comprehensive Metabolic Panel 9 Lipid Panel Hemosure [...] Providers Copied on Encounter Offic/outpt E&m Estab Low-mod Comprehensiv e Care [facility], [address], [address], [place], [address], tel:[phone] [facility] *awv (chief complaint)Me dicare preventive (chief complaint) Medicare annual wellness visit, subsequentTr emor of both handsRestles s legPure hypercholest erolemia, unspecifiedI mpaired fasting glucoseILD (interstitia l lung disease)Pros smith cancer 5 Tez Saldana. [address], [id number], [place]. tel:[phone] Referring Provider: Shana Reagan MD, [address] [facility] [address], [place], [address] . tel:[phone] Comprehensiv e [facility], [address], [address], [place], [address], tel:[phone] Comprehensi ve [facility] Prostate cancerPure hypercholest erolemia, unspecifiedI mpaired fasting glucoseILD (interstitia l lung disease) 5 Albert Pop. [address], [address], [place], [id number], [place]. tel:[phone] Referring Provider: Shana Reagan MD, [address] [facility] [address], [place], [address] . tel:[phone] Offic/outpt E&m Estab Low-mod Comprehensiv e Care [facility], [address] [place] [address], [address] [place] [address], [address], tel:[phone] [facility] *pre-op (chief complaint) Prostate cancerPre-op evaluation 4 Tez Saldana. [address], [id number], [place]. tel:[phone] Referring Provider: Shana Reagan MD, [address], [address] . tel:[phone] Comprehens e Care [facility], [address] [place] [address], [address] [place] [address], [address], [place] tel:[phone] [facility] * Wellness (chief complaint)Wi dicare preventive (chief complaint) Medicare annual wellness visit, subsequentIm paired fasting glucosePure hypercholest erolemia, unspecifiedV itamin D deficiencyLo w vitamin B12 levelAneurys m of ascending aorta without ruptureILD (interstitia l lung disease) 4 Tez Saldana. [address] [address], [place], [place], [id number], [place]. tel:[phone] Referring Provider: Shana Reagan MD, [address] [address], [place], [address] . tel:[phone] [facility] [place], [address], [address], [place], [address], [place] tel:[phone] Impaired fasting glucosePure hypercholest erolemia Oct-3 3 Albert Pop. [address] [facility] [address], [id number], [place]. tel:[phone] [facility], [address] [place] [address], [address], [place], [address], tel:[phone] *CPE (chief complaint)Me dicare preventive (chief complaint) Medicare annual wellness visit, subsequentPu re hypercholest erolemia, unspecifiedI mpaired fasting glucoseAneur ysm of ascending aorta without rupture 3 Tez Saldana. [address], [id number], [place]. tel:[phone] Referring Provider: Shana Reagan MD, [address], [address] . tel:[phone] [facility], [address] [place] [address], [address] [place] [address], [address], tel:[phone] Pure hypercholest erolemiaVita min D deficiencyPr e-diabetesBe nign prostatic hyperplasia with lower urinary tract symptoms 3 Ablert Pop. [address], [address], [place], [place], [id number], [place]. tel:[phone] [facility], [address] [place] [address], [address], [place], [address], tel:[phone] [facility] No Information 2 Tez Saldana. [address], [id number], [place]. tel:[phone] [facility], [address], [address], [place], [address], [place] tel:[phone] [facility] (chief complaint)Me dicare preventive (chief complaint) Medicare annual wellness visit, subsequentPr e-diabetesPu re hypercholest erolemiaVita min D deficiency 2 Tez Saldana. [address] [facility] [address] [facility], [place], [place], [id number], [place]. tel:[phone] Referring Provider: Shana Reagan MD, [address] [facility] [address] [facility], [place], [address] . tel:[phone] [facility] [place], [address], [address], [place], [address], tel:[phone] Abnormal chest xray 2 Tez Saldana. [address], [id number], [place]. tel:[phone] [facility], [address], [address], [place], [address], [place] tel:[phone] Abnormal chest xray 2 Tez Saldana. [address], [id number], [place]. tel:[phone] Video Visit 95364 [facility] e [facility], [address] [place] [address], [address], [place], [address], tel:[phone] [facility] *Video Visit (chief complaint)*C ough (chief complaint) Cough 2 Tez Saldana. [address], [id number], [place]. tel:[phone] Referring Provider: Shana Reagan MD, [address] [address], [place], [address] . tel:[phone] [facility], [address], [address], [place], [address], [place] tel:[phone] [facility] Vitamin D deficiencyPu re hypercholest erolemia, unspecifiedB PH w urinary obs/LUTSObst ructive sleep apnea syndrome 1 Naomy PANG Liss. [address] [facility] [address], [place], [address], [place]. tel:[phone] [facility] [place], [address], [address], [place], [address], [place] tel:[phone] [facility] Hearing loss, unspecified hearing loss type, unspecified laterality 1 Tez Saldana. [address] [facility] [address], [place], [place], [id number], [place]. tel:[phone] [facility] e [facility], [address], [address], [place], [address], [place] tel:[phone] Pure hypercholest erolemiaImpa ired fasting glucoseVitam in D deficiencyOb structive sleep apnea syndrome 1 Tez Saldana. [address] [facility] [address], [place], [place], [id number], [place]. tel:[phone] [facility], [address], [address], [place], [address], [place] tel:[phone] *video (chief complaint)*M c Wellness (chief complaint)Me dicare preventive (chief complaint) Medicare annual wellness visit, subsequentDi arrhea, unspecified typeRhinitis , unspecified typeBPH w urinary obs/LUTSOthe r obstructive and reflux uropathy 0 Tez Saldana. [address] [facility] [address], [place], [place], [id number], [place]. tel:[phone] Referring Provider: Shana Reagan MD, [address] [facility] [address], [place], [address] . tel:[phone] [facility] e [facility] [place], [address], [address], [place], [address], [place] tel:[phone] Impaired fasting glucosePure hypercholest erolemia Martín- 0 Naomy Leija. [address], [place], [address], [place]. tel:[phone] Offic/outpt E&m Estab Low-mod [facility] [place], [address], [address], [place], [address], [place] tel:[phone] [facility] *medication f/up (chief complaint) Obstructive sleep apnea syndrome 9 Naomy Leija. [address], [place], [address], [place]. tel:[phone] Referring Provider: Liss PANG, [address], [place], [address]. tel:[phone] [facility], [address], [address], [place], [address], [place] tel:[phone] Impaired fasting glucosePure hypercholest erolemiaBeni gn prostatic hyperplasia with lower urinary tract symptoms 9 Tez Saldana. [address] [facility] [address], [id number], [place]. tel:[phone] Offic/outpt E&m Estab Mod-hi 2 Comprehensiv e Care [facility], [address], [address], [place], [address], [place] tel:[phone] [facility] *vertigo (chief complaint) Episodic lightheadedn ess 8 Tez Saldana. [address] [facility] [address], [place], [place], [id number], [place]. tel:[phone] Referring Provider: Shana Reagan MD, [address] [facility] [address], [place], [address] . tel:[phone] [facility], [address], [address], [place], [address], [place] tel:[phone] * Physical (chief complaint)Me dicare preventive (chief complaint) Encntr for general adult medical exam w/o abnormal findings 8 Tez Saldana. [address], [id number], [place]. tel:[phone] Referring Provider: Shana Reagan MD, [address], [address] . tel:[phone] [facility], [address], [address], [place], [address], [place] tel:[phone] [facility] No Information 8 Tez Saldana. [address], [id number], [place]. tel:[phone] Offic/outpt E&m Estab Low-mod [facility], [address], [address] [place] [address], [address], tel:[phone] *Follow up (chief complaint) Impaired fasting glucosePure hypercholest erolemia, unspecifiedB enign prostatic hyperplasia with lower urinary tract symptoms 8 Tez Saldana. [address], [id number], [place]. tel:[phone] Referring Provider: Shana Reagan MD, [address], [address] . tel:[phone] [facility], [address] [facility], [address], [place], [address], [place] tel:[phone] *exec physical (chief complaint) Physical examPure hypercholest erolemiaImpa ired fasting glucoseBenig n prostatic hyperplasia with lower urinary tract symptomsVita min D deficiencyOb structive sleep apnea syndromeHypo testosterone miaRLS (restless legs syndrome) 7 Claudette Earl. [address] [place] [address], [id number], [place]. tel:[phone] Referring Provider: Rajat Wilkins MD, [address] [place] [address], [address] . tel:[phone] Offic/outpt E&m Estab Mod-hi 2 [facility], [address] [facility], [address], [place], [address], [place] tel:[phone] [facility] *f/u (chief complaint) Benign prostatic hyperplasia with lower urinary tract symptomsDecr eased libidoFH: prostate cancerPure hypercholest erolemiaImpa ired fasting glucoseNose irritation 7 Claudette Earl. [address] [place] [address], [id number], [place]. tel:[phone] Referring Provider: Rajat Wilkins MD, [address] [place] [address], [address] . tel:[phone] Offic/outpt E&m Estab Low-mod [facility], [address] [place] [address], [address], [place], [address], [place] tel:[phone] * (chief complaint) Cough 6 Claudette Earl. [address] [place] [address], [id number], [place]. tel:[phone] Referring Provider: Rajat Wilkins MD, [address] [place] [address], [address] . tel:[phone] Offic/outpt E&m Estab Low-mod Comprehensiv e [facility], [address] [facility], [address], [place], [address], [place] tel:[phone] [facility] *3mo f/u (chief complaint) Impaired fasting glucosePure hypercholest erolemiaObst ructive sleep apnea syndromeDiar king, unspecified type 6 Claudette Earl. [address] [place] [address], [id number], [place]. tel:[phone] Referring Provider: Rajat Wilkins MD, [address] [place] [address], [address] . tel:[phone] Offic/outpt E&m Estab Low-mod Comprehensiv e Care [facility], [address], [address], [place], [address], [place] tel:[phone] [facility] *4mo f/u (chief complaint) Impaired fasting glucosePure hypercholest erolemiaObst ructive sleep apnea syndromeVita min D deficiency 6 Claudette Earl. [address] [place] [address], [id number], [place]. tel:[phone] Referring Provider: Rajat Wilkins MD, [address] [place] [address], [address] . tel:[phone] Comprehensiv e [facility], [address] [place] [address], [address], [place], [address], [place] tel:[phone] Impaired fasting glucosePure hypercholest erolemia 6 Claudette Earl. [address] [place] [address], [id number], [place]. tel:[phone] Offic/outpt E&m Estab Mod-hi 2 Comprehensiv e [facility], [address] [facility] [facility], [address], [place], [address], [place] tel:[phone] [facility] *follow up (chief complaint) PrediabetesV asomotor rhinitisPure hypercholest erolemiaFati barbara, unspecified typeEnlarged prostate with lower urinary tract symptomsElev ated blood pressure reading 5 Claudette Earl. [address] [place] [address], [id number], [place]. tel:[phone] Referring Provider: Rajat Wilkins MD, [address] [place] [address], [address] . tel:[phone] Offic/outpt E&m Estab Low-mod Comprehensiv [facility], [address] [facility], [address], [place], [address], tel:[phone] f/u* (chief complaint) Pre-diabetes Sep- 5 Claudette Earl. [address] [place] [address], [id number], [place]. tel:[phone] Referring Provider: Rajat Wilkins MD, [address] [place] [address], [address] . tel:[phone] [facility], [address], [address], [place], [address], tel:[phone] left sholder (chief complaint)ch ronic conditions (chief complaint) Nevus of left shoulder Martín- 5 Claudette Earl. [address] [place] [address], [id number], [place]. tel:[phone] Referring Provider: Rajat Wilkins MD, [address] [place] [address], [address] . tel:[phone] [facility], [address] [facility] [facility], [address], [place], [address], [place] tel:[phone] Executive Physical (chief complaint) PHYSICAL/GEN MEDICAL EXAMIMPAIRED FASTING GLUCOSEPure hypercholest erolemiaVita min D deficiencyOt her Examination Of Ears And HearingAller gic rhinitisPROS SMITH HYPERTROPHY, W/ URINE O June- 5 Claudette Earl. [address] [place] [address], [id number], [place]. tel:[phone] Referring Provider: Rajat Wilkins MD, [address] [place] [address], [address] . tel:[phone] [facility] e [facility], [address] [facility], [address], [place], [address], [place] tel:[phone] Execuive Blood Draw (chief complaint) Routine general medical examination at a health care facility 5 Claudette Earl. [address] [place] [address], [id number], [place]. tel:[phone] Referring Provider: Rajat Wilkins MD, [address] [place] [address], [address] . tel:[phone] Offic/outpt E&m Estab Low-mod [facility], [address] [place] [address], [address], [place], [address], [place] tel:[phone] f/u (chief complaint) Pre-diabetes Hypercholest erolemiaBeni gn prostate hyperplasia 4 Claudette Earl. [address] [place] [address], [id number], [place]. tel:[phone] Referring Provider: Rajat Wilkins MD, [address] [place] [address], [address] . tel:[phone] Offic/outpt E&m Estab Low-mod Comprehensiv e [facility], [address] [facility], [address], [place], [address], [place] tel:[phone] *Pulled quad muscle (chief complaint) Quadriceps strainHyperc holesterolem iaHyperchole sterolemia 4 Claudette Earl. [address] [place] [address], [id number], [place]. tel:[phone] Referring Provider: Rajat Wilkins MD, [address] [place] [address], [address] . tel:[phone] [facility], [address] [place] [address], [address], [place], [address], [place] tel:[phone] medication refill (chief complaint) Pre-diabetes Hypercholest erolemiaPROS SMITH HYPERTROPHY, W/ URINE OEncounter for weight loss counselingPn eumonia Vaccine Apr- 4 Claudette Earl. [address] [place] [address], [id number], [place]. tel:[phone] Referring Provider: Rajat Wilkins MD, [address] [place] [address], [address] . tel:[phone] [facility], [address] [place] [address], [address], [place], [address], [place] tel:[phone] [facility] Hypercholest erolemia Fe 4 Claudette Earl. [address] [place] [address], [id number], [place]. tel:[phone] Well Visit (>65) [facility], [address] [place] [address], [address], [place], [address], [place] tel:[phone] [facility] physical exam (chief complaint) PHYSICAL/GEN MEDICAL EXAMSCREEN FOR MALIG NEOPLASMS THE R 2 Claudette Earl. [address] [place] [address], [id number], [place]. tel:[phone] Referring Provider: Rajat Wilkins MD, [address] [place] [address], [address] . tel:[phone] Offic/outpt E&m Estab Mod-hi 2 [facility], [address] [place] [address], [address], [place], [address], [place] tel:[phone] ERECTILE DYSFUNCTION 1 Claudette Earl. [address] [place] [address], [id number], [place]. tel:[phone] Referring Provider: Rajat Wilkins MD, [address] [place] [address], [address] . tel:[phone] Office Exam - Intermediate [facility], [address] [facility] [facility], [address], [place], [address], [place] tel:[phone] preoperative evaluation (chief complaint)Dr Chema Elizabeth (chief complaint) Surgical ClearanceOST EOARTHROSIS, LOCAL,LOWER LEG 1 Claudette Earl. [address] [place] [address], [id number], [place]. tel:[phone] Referring Provider: Rajat Wilikns MD, [address] [place] [address], [address] . tel:[phone] Office Exam - Limited [facility], [address] [facility] [facility], [address], [place], [address], [place] tel:[phone] [facility] f/u (chief complaint) No Information 0 Claudette Earl. [address] [place] [address], [id number], [place]. tel:[phone] Referring Provider: Rajat Wilkins MD, [address] [place] [address], [address] . tel:[phone] [facility], [address] [facility], [address], [place], [address], [place] tel:[phone] [facility] No Information 0 0 Claudette Earl. [address] [place] [address], [id number], [place]. tel:[phone] Referring Provider: Rajat Wilkins MD, [address] [place] [address], [address] . tel:[phone] No practice address available. [facility] No Information 9 Claudette Earl. [address] [place] [address], [id number], [place]. tel:[phone] Referring Provider: Rajat Wilkins MD, [address] [place] [address], [address] . tel:[phone] Comprehensiv e Care [facility], [address] [facility], [address], [place], [address], [place] tel:[phone] [facility] No Information 9 Claudette Earl. [address] [place] [address], [id number], [place]. tel:[phone] Referring Provider: Rajat Wilkins MD, [address] [place] [address], [address] . tel:[phone] [facility], [address] [facility], [address], [place], [address], [place] tel:[phone] [facility] No Information 9 Claudette Earl. [address] [place] [address], [id number], [place]. tel:[phone] Referring Provider: Rajat Wilkins MD, [address] [place] [address], [address] . tel:[phone] Well Visit (40-64) [facility], [address] [facility], [address], [place], [address], [place] tel:[phone] [facility] physical (chief complaint) PHYSICAL/GEN MEDICAL EXAMSCREEN FOR MALIG NEOPLASMS THE R 200 9 Claudette Earl. [address] [place] [address], [id number], [place]. tel:[phone] Referring Provider: Rajat Wilkins MD, [address] [place] [address], [id number] . tel:[phone] Office Exam - Intermediate [facility], [address] [place] [address], [address], [place], [address], [place] tel:[phone] [facility] f/u (chief complaint) No Information 9 Claudette Earl. [address] [place] [address], [id number], [place]. tel:[phone] Referring Provider: Rajat Wilkins MD, [address] [place] [address], [id number] . tel:[phone] [facility], [address] [place] [address], [address], [place], [address], [place] tel:[phone] [facility] No Information 8 Claudette Earl. [address] [place] [address], [id number], [place]. tel:[phone] Referring Provider: Rajat Wilkins MD, [address] [place] [address], [address] . tel:[phone] Well Visit (40-64) [facility] [address], [address], [place], [address], [place] tel:[phone] [facility] physical (chief complaint) PHYSICAL/GEN MEDICAL EXAMDIVERTIC ULOSIS OF COLON W/O MENTION OF HEMORRHAGE 8 Claudette Earl. [address] [place] [address], [id number], [place]. tel:[phone] Referring Provider: Rajat Wilkins MD, [address] [place] [address], [id number] . tel:[phone] Offic/outpt E&m Estab Mod-hi 2 [facility], [address] [place] [address], [address], [place], [address], [place] tel:[phone] [facility] f/u (chief complaint) RHINITIS, NASOPHARYNGI TIS COMMON COLD Martín-0 5-200 7 Claudette Earl. [address] [place] [address], [id number], [place]. tel:[phone] Referring Provider: Rajat Wilkins MD, [address] [place] [address], [address] . tel:[phone] [facility], [address] [facility], [address], [place], [address], [place] tel:[phone] [facility] f/u (chief complaint) PROSTRATE HYPERTROPHY, W/ URINE O Mar-1 3-200 7 Claudette Earl. [address] [place] [address], [id number], [place]. tel:[phone] Referring Provider: Rajat Wilkins MD, [address] [place] [address], [address] . tel:[phone] [facility], [address] [place] [address], [address], [place], [address], [place] tel:[phone] [facility] 3 mo f/u (chief complaint) IMPAIRED FASTING GLUCOSE Dec-1 2-200 6 Claudette Earl. [address] [place] [address], [id number], [place]. tel:[phone] Referring Provider: Rajat Wilkins MD, [address] [place] [address], [id number] . tel:[phone] [facility], [address] [facility], [address], [place], [address], [place] tel:[phone] [facility] IMPAIRED FASTING GLUCOSE Sep-2 0-200 6 Claudette Earl. [address] [place] [address], [id number], [place]. tel:[phone] Referring Provider: Rajat Wilkins MD, [address] [place] [address], [address] . tel:[phone] [facility], [address], [address], [place], [address], [place] tel:[phone] [facility] physical (chief complaint) HYPERCHOLEST EROLEMIA, PUREBLOOD PRESSURE, ELEVATED READING Sep-1 2-200 6 Claudette Earl. [address] [place] [address], [id number], [place]. tel:[phone] Referring Provider: Rajat Wilkins MD, [address] [place] [address], [address] . tel:[phone] Family History Family Member Type Diagnosis Age At Onset Mother Problem (finding) hypertension Father Problem (finding) Arthritis Father Problem (finding) Cancer of the Prostate Immunizations Vaccine Date Status Comments COVID-19, mRNA LNP-S PF 100mcg or 50mcg administered Source: Other Regist ry COVID-19, mRNA LNP-S PF 100mcg or 50mcg administered Source: Other Regist ry Influenza Fluad trivalent, adjuvanted, PF administered Source: New Immuniza tion Record Prevnar 13 administered Source: New Imm unization Record Influenza (High Dose) administered Source : Other Registry Pneumo (2 yrs or older)(PPV) administered Source: New Immunization Record Tdap administered Source: New Imm unization Record Zoster administered Source: New Imm unization Record Zoster administered Source: New Imm unization Record Tdap administered Source: New Imm unization Record Payers Payer name Insurance type Covered republican ID Authoriza tion(s) Medicare MB [id number] [place] [id number] Medicare MB [id number] [place] [id number] Medicare MB [id number] [place] [id number] Social History Type Description Quantity Date Captured Comments Alcohol Use Details Unknown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 subsequent Recent labs normal.R ecent cardiac workup reportedly normal.EKG today unremarkable.Orthostatics negative.Trial decreasing terazosin to 2 tabs every evening to see if this helps with dizziness while still helping with urination.Make sure you are drinking plenty of fluids.Let me know if any new symptoms develop. Related to Episodic lightheadedness Shingrix prescriptio n given.Labs done - will send copy.Colonoscopy due in 2018. Related to Encntr for general adult medical exam w/o abnormal findings Continue current med ications.Labs ordered.Follow up in 6 months or sooner if needed. Related to Impaired fasting glucose all of your testing was excellent today Related to Physical exam if worsens we an reji at this effectively with medication Related to RLS (restless legs syndrome) discuss with an d decide if you would like to take med to normalize your testosterone leel Related to Hypotestosteronemia continue current med s-option to increase med if urination frequency worsens Related to Benign prostatic hyperplasia with lower urinary tract symptoms continue care with sleep doc Rel ated to Obstructive sleep apnea syndrome ncrease vitamin d to 2000 iu per day Related to Vitamin D deficiency observing as you inc rease exercise to see its impact on your [id number] not coming down adjust the metformin Related to Impaired fasting glucose ldl just slightly hi gh. continue simvastatin and hopefully with your increased exercise it should come down Related to Pure hypercholesterolemia try rhinocort aq 2 p each nostril once a day. 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 He will email me in one week or immediately if having side effects if no improvement consider hector plus5 alpha prime reductase inhibitor as next step and if no improvement consider post void residual test to confirm prostate vs. bladder problem please keep diary of frequency of urination both pre and post starting new medmonitor blood pressure too make sure it does not go to low on new medreport back to me if lightheaded upon arising Related to Benign prostatic hyperplasia with lower urinary tract symptoms r/o secondary pneumo sandor with xray-if normal would observe and treat symptomatically Related to Cough probably to metf ormin-pt will stop for one week and get back to me Related to Diarrhea, unspecified type back to sleep specia list although things sound better now Related to Obstructive sleep apnea syndrome back on simvastatin since we know it worked before and was well tolerated Related to Pure hypercholesterolemia continue current t of decreased simple sugars, white rice, white breadback to daily exercise routinerepat lab 3 months after back on simvastatin Related to Impaired fasting glucose discussed the mild s everity. Possibly can do without any treatmentl. Should consider mandibular repositiioning deviice. Will disuss and get back to me Related to Obstructive sleep apnea syndrome trial off med for 3 months since patient has increased exercise and lost weight and will continue to do so. Recheck in 3 months to determine need for med resumption Related to Pure hypercholesterolemia 1. continue exercise , diet and metformin-excellent controol Related to Impaired fasting glucose Consider purchasing a home blood pressure monitor such as the Omron 786 home blood pressure machine which can be found for around $60.00 on [employer] or for around $100.00 in stores or the [employer] [id number] Cuffless Upper Arm Blood Pressure MonitorIf you decide to purchase the Omron 786 be sure to set the machine to the averaging function which takes 3 consecutive blood pressure readings and averages them out to give you a more accurate blood pressure readingBring your home blood pressure in to your next appointment for calibrationTake occasional blood pressure readings to monitor your blood pressureIf you begin seeing your blood pressure consistently above 140/90 begin taking blood pressure readings first thing in the mornings for 2 weeksLog your blood pressure readings in a blood pressure diary and send me this diary at the end of 2 weeks for reviewAfter I review your blood pressure diary I will contact you to discuss the next course of treatment Related to Elevated blood pressure reading Discussed different Rx medication treatment optionsLet me know when symptoms become bothersome or worsen and we can discuss the next course of treatment Related to Enlarged prostate with lower urinary tract symptoms Referral to neurolog ist Dr. Heavenly MartinezForadha up with Dr. Martinez to have a sleep study conducted Related to Fatigue, unspecified type Continue to take All egra as directedDiscussed different treatment options such as a daily nasal sprayReturn if symptoms persist or worsenScribe Attestation:I, Estephanie Frazier, scribed the note for Dr. Rajat Wilkins.Electronically signed by: Estephanie Frazier at: [id number] on: 01/30/15I, Dr. Rajat Wilkins, agree that the documentation is accurate and complete to the best of my knowledge. Related to Vasomotor rhinitis Reviewed latest lab work resultsLatest lab work results showed all cholesterol values to be within normal rangesWe will continue to monitor your cholesterol valuesContinue to take Zocor as directed Avoid eating fatty, fried, and greasy foodsLimit dietary fat intake from animal sourcesContinue to exercise regularly Related to Pure hypercholesterolemia Reviewed latest lab work resultsLatest lab work results showed a slightly elevated fasting blood glucose value of 102 when normal is below 99Latest lab work results also showed an elevated Hemoglobin A1c value of 5.9 which has improved from your previous lab work results which showed a Hemoglobin A1c value of 6.1We will continue to monitor these valuesContinue to take Metformin as directed Avoid eating simple white carbohydrates such as white bread, white rice, white potatoes, white flour, etc.Limit intake of sweets and sugary foodsTry to increase complex carbohydrate intake such as whole-wheat products with fiberReduce daily caloric intake to help lose weightOrdered new lab workComplete new lab work in 4 months and I will notify you of the resultsMake sure to be fasting for at least 12 hours before completing lab work Related to Prediabetes Lab results reviewed and all within normal range except your blood glucose was elevated at 107. Your Hemoglobin A1C is at 6.1 which is pre-diabetic.Discussed the benefits of medication. Try Metformin 500 mg twice a day for about 2 weeks and email me if diarrhea presents or persists. Recommend to continue avoiding greasy, cheesy, fried foods. Exercise regularly. Encourage a diet of grains, fruits and vegetables. Scribe Attestation:I, Alana Conway, scribed the note for Dr. Rajat Wilkins.Electronically signed by: Alana Conway at: 1230 on: 10/31/2014I, Dr. Rajat Wilkins, agree that the documentation is accurate and complete to the best of my knowledge. Related to Pre-diabetes No need to limit bridger ly activitiesWash wound daily with soap and waterKeep wound covered with a band-aid until wound scabs overDo not use any creams, gels, or antibiotic ointments on woundPunch biopsy of skin nevus on left shoulder performedPunch biopsy successful and well-toleratedI will send the nevus skin sample to the pathology lab and let you know the results when I receive themPending on the result of the biopsy we will discuss the next course of treatment then Scribe Attestation:Estephanie Moreno, scribed the note for Dr. Rajat Wilkins.Electronically signed by: Estephanie Frazier at: 1347 on: 07/20/14I, Dr. Rajat Wilkins, agree that the documentation is accurate and complete to the best of my knowledge. Related to Nevus of left shoulder Discussed Rx medicat ion treatment optionsYou may try supplementing with over the counter Saw Guero me know if symptoms become bothersome or worsen and we can discuss the next course of treatment Related to PROSTATE HYPERTROPHY,W/ URINE O You may begin to try over the counter allergy medications to help with symptomsI recommend starting with over the counter ClaritinTry starting food elimination diary to see if you can correlate which foods and/or events trigger your symptoms so you can begin avoiding those foodsIf over the counter allergy medications fail to reduce symptoms, return and we can discuss further treatment options Related to Allergic rhinitis Hearing test perform ed in office which showed normal results Scribe Attestation:IEstephanie, scribed the note for Dr. Rajat Wilkins.Electronically signed by: Estephanie Frazier at: 950 on: 07/05/14I, Dr. Rajat Wilkins, agree that the documentation is accurate and complete to the best of my knowledge. Related to Other Examination Of Ears And Hearing Start to exercise re gularly to aid in weight loss obtain a healthier body weightI recommend exercising an average of 150 per week or about 30 minutes a day to help you achieve this goalReduce daily caloric intake to aid in weight lossOrdered lab workComplete lab work in 3 months and I will notify you of the resultsBe sure to be fasting for at least 10 hours before completing lab workSpirometry breathing test performed in office which showed normal resultsVision test performed in office which showed normal results with corrected lenses Related to PHYSICAL/GEN MEDICAL EXAM Reviewed latest lab work resultsLatest lab work results showed an elevated fasting blood glucose value of 109 when normal is less than 99Eating a diet low in sugar and high glycemic carbohydrates such as white rice, white bread, white flour, etc. can help reduce this valueTry to eat low glycemic carbohydrates such as whole-wheat bread with fiber Related to IMPAIRED FASTING GLUCOSE Reviewed latest lab work resultsLatest lab work results showed all lipid values within normal rangesContinue to take Zocor as directedAvoid eating fatty, friend, and greasy foodsLimit dietary fat intake from animal sources Related to Pure hypercholesterolemia Reviewed latest lab work resultsLatest lab work results showed a slightly decreased vitamin D level of 19.1 when normal is greater than 20This value is not concerning at this time but we will continue to monitor this valuePick up a 1000 iu vitamin D supplement from your local pharmacyBegin taking vitamin D 1000 iu as directed, 1 pill dailyI will retest your vitamin D level in 3 months after you have been supplementing with vitamin D 1000 iu Related to Vitamin D deficiency Monitor urinary freq uency, and will consider prescribing medication (Cialis, Proscar and Avadart) if needed. I, Bess Bender, scribed this note for Dr. Rajat Wilkins. I, Dr. Rajat Wilkins M.D., agree that documentation is accurate and complete to the best of my knowledge. Related to Benign prostate hyperplasia Continue current car e and medication. Related to Hypercholesterolemia Continue current car e. Literature and studies show that taking vitamins in their natural environment is more beneficial than taking them in the form of supplements.Cleanses are not shown to be substantially beneficial and the studies on fish oil are unclear. Related to Pre-diabetes Assessments Type Assessment Date assessment Medicare annual wellness visit, subsequent assessment Tremor of both hands assessment Restless leg assessment Pure hypercholesterolemia, unspe cified assessment Impaired fasting glucose 2024 assessment ILD (interstitial lung disease) assessment Prostate cancer Mental Status Date Cognitive Assessment Orientation - [place] ed to time, place, person, situation. Patient Care Teams Name Effective Dates (start - stop) Status Members No Information
--- OUTSIDE RECORDS SUMMARY | 2024-10-04 09:36 | XMS_ITS | Patient Health Record ---
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 Nida Castillo Primary Care Provider [phone] Ze Zapata Unavailable [phone] Migration, Provider Unavailable Unavailable Allergies No Known Allergies Results Component Value Reference Range Notes AUDIT-C Reviewed date:12/17/2023 12:00:00 AM Interpretation: Performing Lab: Notes/Report: How many standard drinks con taining alcohol do you have on a typical day? 1 or 2 drinks How often do you have 6 or m ore drinks on 1 occasion Never How often do you have a drin k containing alcohol Monthly or less Total Score 1 Patient Health Questionnaire (PHQ9) Reviewed date:12/17/2023 12:00:00 AM Interpretation: Performing Lab: Notes/Report: Feeling bad about yourself o r that you are a failure or have let yourself or your family down 0 Feeling down, depressed, or hopeless 0 Feeling tired or having little energy 0 If you checked off any probl ems, how difficult Not difficult at all have these problems made it for you to do your work, take care of things at home, or get along with other people? 0 Little interest or pleasure in doing things 0 Moving or speaking so slowly that other people could have noticed or the opposite being so figety or restless that you have been moving around a lot more than usual 0 Poor appetite or overeating 0 Thoughts that you would be b andrés off , or of hurting yourself 0 Trouble concentrating on thi ngs, such as reading the newspaper or watching television 1 Trouble falling or staying a sleep, or sleeping too much 0 Reason For Referral No Information Medications Medication SIG (Take, Route, Frequency, Duration) Notes Start Date End Date Status Rosuvastatin Calcium 5 MG Tablet 1 tablet Orally Once a day Active Fexofenadine HCl 180 MG Tablet 1 Oral every day; Duration: 0 12/04/2021 Active Azelastine HCl 137 MCG/SPRAY Solution Nasal; Duration: 0 12/04/2021 Active Vitamin D3 25 MCG (1000 UT) Capsule 2 Oral every day; Duration: 0 12/04/2021 Active Tadalafil 5 MG Tablet 1 tablet Orally On ce a day Active Cyanocobalamin 1000 MCG/15ML Liquid 15 mL Orally every 2 weeks 1mL 07/25/2024 Active predniSONE 20 MG Tablet 1 tablet with food or milk Orally Once a day As needed 07/25/2024 Active Doxycycline Hyclate 100 MG Capsule 1 capsule Orally Once a day As needed 07/25/2024 Active Immunizations Vaccine Route Administration Date Status Comme nts Influenza, high dose seasonal IM Intramuscular 12/11/2023 Administered ,sourcename : N ew immunization record ,immstatus : Complete Moderna Covid-19 Vaccine 1st dose IM Intramuscular 12/12/2020 Administered Source VFC Code: : Pfizer-Biontech Covid-19 Vaccine 1st dose IM Intramuscular 07/10/2021 Administered Source VFC Code: : Pfizer-Biontech Covid-19 Vaccine 1st dose IM Intramuscular 12/11/2023 Administered ,sourcename : N ew immunization record ,immstatus : Complete Zoster IM Intramuscular 11/03/2022 Administered ,sourc ename : New immunization record ,immstatus : Complete Zoster IM Intramuscular 12/11/2023 Administered ,sourc ename : New immunization record ,immstatus : Complete Social History Tobacco Use: Social History Observation Description Date Details (start date - stop date) Former Smoker NA - NA Social History Household: Social Info Question Answer Notes Household Marital status: Tobacco Use: Social Info Question Answer Notes Tobacco Control (Standard) Tobacco use: Former smoker Section Notes: 2 ppd x 4 yrs Problems Problem Type SNOMED Code ICD Code Onset Dates Problem Status W/U Status Risk Notes Problem Chronic sinusitis (93967061) Other chronic sinusitis (J32.8) Active confirmed Problem History of malignant neoplasm of prostate (864627149) Hx of prostatic malignancy (Z85.46) Active confirmed Problem Vitamin B deficiency (46056058) Deficiency of other specified B group vitamins (E53.8) 12/05/19 22 Active confirmed Problem Vitamin D deficiency (09685717) Vitamin D deficiency, unspecified (E55.9) 09/23/19 24 Active confirmed Problem Sleep apnea (45393596) Sleep apnea, unspecified (G47.30) 11/01/19 23 Active confirmed Problem 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) Interstitial pulmonary disease, unspecified (J84.9) 12/17/19 24 Active confirmed Problem Diverticula of intestine (67841721) Diverticulosis of intestine, part unspecified, without perforation or abscess without bleeding (K57.90) 12/05/19 22 Active confirmed Problem Blood chemistry abnormal (240983719) Other specified abnormal findings of blood chemistry (R79.89) 11/13/19 23 Active confirmed Problem Solitary pulmonary nodule (550594572) Solitary pulmonary nodule (R91.1) 11/04/19 23 Active confirmed Problem Screening for malignant neoplasm of prostate (772241999) Encounter for screening for malignant neoplasm of prostate (Z12.5) 09/21/19 24 Active confirmed Problem Vaccination given (801747207) Encounter for immunization (Z23) 11/04/19 23 Active confirmed Problem Prediabetes (233483705) Prediabetes (R73.03) 12/17/19 24 Active confirmed Problem Body mass index 25-29 - overweight (415799161) Body mass index (BMI) 27.0-27.9, adult (Z68.27) 12/11/19 24 Active confirmed Problem Enlarged prostate (204889330) Enlarged prostate without lower urinary tract symptoms (N40.0) 09/21/19 24 Active confirmed Problem BMI 25-29 - overweight (508671377) Body mass index (BMI) 29.0-29.9, adult (Z68.29) 11/04/19 23 Active confirmed Problem Thyroid function tests abnormal (487266020) Abnormal results of thyroid function studies (R94.6) 11/04/19 23 Active confirmed Problem Frequency of micturition (674831422) Frequency of micturition (R35.0) 12/05/19 22 Active confirmed Problem Actinic keratosis (043384) Actinic keratosis (L57.0) 12/05/19 22 Active confirmed Problem Hyperlipidemia (42653616) Hyperlipidemia, unspecified (E78.5) 12/17/19 24 Active confirmed Problem Nicotine dependence (43237371) Personal history of nicotine dependence (Z87.891) 11/04/19 23 Active confirmed Problem Screening for cardiovascular system disease (149611756) Encounter for screening for cardiovascular disorders (Z13.6) 11/04/19 23 Active confirmed Problem Adult health examination (358006249) Encounter for general adult medical examination without abnormal findings (Z00.00) 11/04/19 23 Active confirmed Vital Signs Heart Rate 74 /min 07/25/2024 Temperature 96.8 degrees Fahrenheit 07/25/2024 Respiratory Rate 18 /min 07/25/2024 Blood pressure diastolic 80 mm Hg 07/25/2024 Oximetry 98 % 07/25/2024 Height-cm 193.04 cm 07/25/2024 Weight-kg 101.79 kg 07/25/2024 Height 76.00 in 07/25/2024 Blood pressure systolic 120 mm Hg 07/25/2024 Weight 224.4 lbs 07/25/2024 BMI 27.31 kg/m2 07/25/2024 Encounters Encounter Location Date Provider Diagnosis [address] [address] 10/05/2023 Dr. Nida Castillo [address] [address] 12/11/2023 Provider Migration Encounter for immunization Z23 ; Body mass index (BMI) 27.0-27.9, adult Z68.27 ; Hyperlipidemia, unspecified E78.5 ; Interstitial pulmonary disease, unspecified J84.9 ; Prediabetes R73.03 and Encounter for general adult medical examination without abnormal findings Z00.[address] [address] 12/17/[address] [address] 07/25/2024 Dr. Nida Castillo Prediabetes R73.03 ; Obstructive sleep apnea G47.33 ; Tremor R25.1 ; Vitamin B12 deficiency E53.8 ; Hx of prostatic malignancy Z85.46 ; Interstitial pulmonary disease, unspecified J84.9 ; Deviated septum J34.2 and Other chronic sinusitis J32.8 [facility] [address] [place] [address] 01/16/2024 Provider Migration [facility] [address] [place] [address] 01/17/2024 Provider Migration [facility] [address] [place] [address] 08/01/2024 Dr. Nida Castillo Assessments Encounter Date Diagnosis (ICD Code) Assessment Notes Treatment Notes Treatment Clinical Notes Section Notes 12/11/2023 Hyperlipidemia, unspecified (ICD-10 - E78.5) 12/11/2023 Interstitial pulmonary disease, unspecified (ICD-10 - J84.9) 12/11/2023 Encounter for general adult medical examination without abnormal findings (ICD-10 - Z00.00) 12/11/2023 Encounter for immunization (ICD-10 - Z23) 12/11/2023 Prediabetes (ICD-10 - R73.03) 12/11/2023 Body mass index (BMI) 27.0-27.9, adult (ICD-10 - Z68.27) 07/25/2024 Prediabetes (ICD-10 - R73.03) 40 mins spent face to face today. 07/25/2024 Obstructive sleep apnea (ICD-10 - G47.33) 07/25/2024 Tremor (ICD-10 - R25.1) 07/25/2024 Vitamin B12 deficiency (ICD-10 - E53.8) Pt would like auto injector for B12 shots. 07/25/2024 Hx of prostatic malignancy (ICD-10 - Z85.46) 07/25/2024 Interstitial pulmonary disease, unspecified (ICD-10 - J84.9) 07/25/2024 Deviated septum (ICD-10 - J34.2) 07/25/2024 Other chronic sinusitis (ICD-10 - J32.8) 07/25/2024 Other auto injector B12 every 2 weeks. Prostate Cancer - s/p surgery. - History of prostate cancer with a Jessi score of 4-3. Tumor was not near other organs and was successfully removed. Current PSA levels are microscopic, indicating no progression. - Follow-up with urologist in one year as advised. Continue monitoring PSA levels to ensure no recurrence. Hand Tremors - Tremors occur with muscle activation, not at rest. Differential diagnosis includes potential medication side effects (statins) or atypical presentation of essential familial tremor. Possible nervous system involvement suggested. - Order EMG at [facility] to investigate underlying cause. Consider MRI of the neck if EMG indicates neuropathy. Follow-up with neurologist if necessary. Sleep Apnea - Persistent daytime somnolence despite CPAP use. Scheduled in-place sleep study in January to assess current treatment efficacy. - Continue CPAP use. Await results of sleep study for further management. -Discussed that he could talk to specialist about medication if still having a lot of daytime tiredness and nothing can be changed on CPAP. Interstitial Lung Disease (ILD) - ILD is stable with no progression. No current respiratory symptoms. - Consider RSV vaccine for additional protection. Confirm vaccination status with primary care since it was given in [place] and records aren't available here. Deviated Septum - Difficulty breathing due to deviated septum and previous Mohs surgery. - Patient declined surgical intervention. Consider nonsurgical options like nasal strips or silicone cones. B12 Injections - Ongoing B12 supplementation every two weeks. - Investigate availability of pre-filled pen injectors for easier administration. Plan Of Treatment Pending Test Test Name Order Date EMG/NCV ARMS 07/25/2024 Vitamin B12 07/25/2024 Next Appt Details Provider Name:Dr. Nida fierro, 12/22/2024 11:15:00 AM, [email or web address], [place], [address], [phone] Provider Name:Dr. Nida fierro, 07/27/2025 10:00:00 AM, [employer] [facility], [place], [address], [phone] Insurance Providers Payer Name Payer Address Payer Phone Subscriber Number Group Number Insured Name Patient Relationship to Insured Coverage Start Date Coverage End Date [facility] Medicare B [address] [employer] [place] [address] [id number] Roney Pena Self - patient is the insured [employer] [address] [place] [address] [id number] Roney Pena Self - patient is the insured [facility] Medicare RHC [address] [place] [address] [id number] Roney Pena Self - patient is the insured Medications Administered Medication Instructions Date of Administration Dosage Notes B12 07/25/2024 1000 ug Medical (General) History Medical History History ICD Code Actinic keratosis L57.0 Deficiency of other specified B group vi tamins E53.8 Diverticulosis of intestine, part unspecified, without perforation or abscess without bleeding K57.90 Frequency of micturition R35.0 Sleep apnea, unspecified G47.30 Abnormal results of thyroid function jeffy dies R94.6 Body mass index (BMI) 29.0-29.9, adult Z 68.29 Encounter for general adult medical exam ination without abnormal findings Z00.00 Encounter for immunization Z23 Encounter for screening for cardiovascul ar disorders Z13.6 Personal history of nicotine dependence Z87.891 Solitary pulmonary nodule R91.1 Other specified abnormal findings of blo od chemistry R79.89 Encounter for screening for malignant ne oplasm of prostate Z12.5 Enlarged prostate without lower urinary tract symptoms N40.0 Vitamin D deficiency, unspecified E55.9 Body mass index (BMI) 27.0-27.9, adult Z 68.27 Hyperlipidemia, unspecified E78.5 Interstitial pulmonary disease, unspecif ied J84.9 Prediabetes R73.03 Surgical History Surgery Date(Month/Year) hand surgery ,notes : bilateral hand an johnnie wrist surgery ,notes : right, 2013 knee surgery ,notes : arthroscopy, left prostatectomy 07/09/23
--- OUTSIDE RECORDS SUMMARY | 2024-10-04 09:36 | XMS_ITS | Clinical Summary ---
Author Organization [facility] Address [address] 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 Active simvastatin (ZOCOR) 10 mg tablet Take 10 mg by mouth daily with supper. Active cetirizine (ZyrTEC) 1 mg/mL Solution Take 1 mg by mouth daily. Active cetirizine (ZyrTEC) 10 mg tablet Take 10 mg by mouth daily. Active azelastine HCl (AZELASTINE BOTH NOSTRIL) Administer in each nostril. Active Active Problems No known active problems Social History Tobacco Use Types Packs/Day Years Used Date Smoking Tobacco: Never Assessed Tobacco Cessation:Counseling Given: Yes Sex and Gender Information Value Date Recorded Sex Assigned at Not on file Legal Sex Male 4:03 PM CDT Gender Identity Not on file Sexual Orientation Not on file Last Filed Vital Signs Vital Sign Reading Time Taken Comments Blood Pressure - - Pulse - - Temperature 36.7 C (98 F) 11/26/2020 9:34 AM CDT Respiratory Rate - - Oxygen Saturation - - Inhaled Oxygen Concentration - - Weight 90.7 kg (200 lb) 11/26/2020 9:34 AM CDT Height 182.9 cm (6') 11/26/2020 9:34 AM CDT Body Mass Index 27.12 11/26/2020 9:34 AM CDT Plan of Treatment Health Maintenance Due Date Last Done Comments DTAP/TDAP/TD VACCINES (1 - Tdap) 09/10/1966 PNEUMOCOCCAL VACCINE 50+ YEARS (1 of 1 - PCV) 09/10/18 98 ZOSTER VACCINE (1 of 2) 09/10/1997 RSV VACCINE (60+ or ) (1 - 1-dose 75+ series) 09/10/2022 INFLUENZA VACCINE (#1) 2024 Insurance MEDICARE PART A AND B [facility]
--- OUTSIDE RECORDS SUMMARY | 2024-10-04 09:36 | XMS_ITS | Clinical Summary ---
Author Organization [facility] Address [address] [place] [address] Care Team Providers Care Va Underwriter Name Role Phone Unavailable Primary Care Provider Unavailabl e Source Comments [facility],non-owned Affiliates and Associated Physician Practices is amultiple site organization consisting of ambulatory clinics and hospital sitesin [place], [place], [place] and [place]. This disclosure is being madepursuant to the Care Everywhere program and may not contain all information available regarding this patient. Last updated 17.[facility] mYwindow Allergies Active Allergy Reactions Criticality Noted Date Comments Fluorouracil Rash Medium 08/13/2020 Medications * Be aware that medications may not be up to date on this document. Alwaysverify current medications with the patient. azelastine (Astelin) 0.1 % nasal spray [place] 1 spray into each nostril once daily as needed 1 Active Cholecalciferol 50 MCG (1999 UT) Take 2,000 Units by mouth once daily Active simvastatin (Zocor) 10 MG tablet Take 10 mg by mouth once daily 2 Active tamsulosin (Flomax) 0.4 MG capsule Take 0.8 mg by mouth at bedtime 2 Active fexofenadine (Taryn) 180 MG tablet Take 180 mg by mouth once daily as needed for Runny Nose or Allergies Active imiquimod (Aldara) 5 % creamIndication s:Squamous cell carcinoma in situ (SCCIS) of scalp Apply to affected area (crown of scalp) five times weekly at bedtime for 6 weeks, leave on skin for 8 hours before washing off as directed in your instructions. 24 Each 1 2 Active valACYclovir (Valtrex) 1 GM tabletIndicatio ns:Actinic keratosis,HSV-1 infection Take 2 (two) tablets by mouth 2 times daily 12 tablet 2 Active Active Problems Problem Noted Date Diagnosed Date Primary hypertension 04/14/2021 Closed fracture of lower end of radius 4 Hyperlipidemia 09/02/2013 Family History Medical History Relation Name Comments None Known Brother None Known Father None Known Maternal Aunt None Known Maternal Grandfather None Known Maternal Grandmother None Known Maternal Uncle None Known Mother None Known Other None Known Paternal Aunt None Known Paternal Grandfather None Known Paternal Grandmother None Known Paternal Uncle None Known Sister Asthma Neg Hx CVA Neg Hx Cancer - Breast Neg Hx Cancer - Other Neg Hx Cancer - Skin, Melanoma Neg Hx Cancer - Skin, Non Melanoma Neg Hx Eczema Neg Hx Hemophilia Neg Hx Psoriasis Neg Hx Relation Name Status Comments Brother Father Maternal Aunt Maternal Grandfather Maternal Grandmother Maternal Uncle Mother Other Paternal Aunt Paternal Grandfather Paternal Grandmother Paternal Uncle Sister Social History Tobacco Use Types Packs/Day Years Used Date Smoking Tobacco: Former Cigarettes Q uit: 1972 Smokeless Tobacco: Never Alcohol Use Standard Drinks/Week Comments Yes 6 (1 standard drink = 0.6 oz pur e alcohol) Sex and Gender Information Value Date Recorded Sex Assigned at Not on file Legal Sex 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 Gender Identity Not on file Sexual Orientation Not on file Last Filed Vital Signs Vital Sign Reading Time Taken Comments Blood Pressure 146/58 12/03/2013 4:00 AM CDT Pulse 70 12/03/2013 4:00 AM CDT Temperature 36.3 C (97.4 F) 12/02/2013 10:42 PM CDT Respiratory Rate 11 12/03/2013 8:19 AM CDT Oxygen Saturation 98% 12/03/2013 4:00 AM CDT Inhaled Oxygen Concentration - - Weight 103 kg (227 lb) 12/02/2013 11:07 PM CDT Height 182.9 cm (6') 12/02/2013 11:07 PM CDT Body Mass Index 30.79 12/02/2013 11:07 PM CDT Plan of Treatment Health Maintenance Due Date Last Done Comments MEDICARE AWV 12 MONTHS 1945 HEPATITIS C SCREENING 09/06/1965 DTAP/TDAP/TD VACCINES (1 - Tdap) 09/10/1966 PNEUMOCOCCAL VACCINE 50+ (1 of 1 - PCV) 09/10/1997 ZOSTER VACCINE (1 of 2) 09/10/1997 Respiratory Syncytial Virus (RSV) Vaccine Pt: or over 60 yrs (1 - 1-dose 75+ series) 09/10/2022 COVID-19 VACCINE (1 - 2023-2 5 season) 2023 DEPRESSION SCREENING 02/17/2024 INFLUENZA VACCINE (#1) 2024 9, 11/27/2017 HEPATITIS B VACCINE Aged Out No longe r eligible based on patient's age to complete this topic HIB VACCINE Aged Out No longer eligi ble based on patient's age to complete this topic HPV VACCINE Aged Out No longer eligi ble based on patient's age to complete this topic MENINGOCOCCAL (Group B) VACCINE SHARED DECISION-MAKING Aged Out No longer eligible based on patient's age to complete this topic MENINGOCOCCAL GROUPS A/C/Y/W VACCINE Aged Out No longer eligible b ased on patient's age to complete this topic Insurance MEDICARE [facility] MEDICARE [facility]
--- OUTSIDE RECORDS SUMMARY | 2024-10-04 09:37 | XMS_ITS | Patient Health Record ---
Author Organization [facility] Address [address] [place] [address] Care Team Providers Care Central Office Worker Name Role Phone Shana HOYOS Primary Care Provider Roger Niño, Donal Unavailable [phone] Allergies Allergen (clinical drug ingredient) Drug/Non Drug Allergy documented on EMR Reaction Allergy Type Onset Date Status Efudex Unknown Drug Allergy Active Pollen, Mold (uncoded) Unknown Allergy Active Reason For Referral No Information Medications Medication SIG (Take, Route, Frequency, Duration) Notes Start Date End Date Status Tamsulosin HCl 0.4 MG 2 tablets Oral onc e a day for 90 days Active Tadalafil 5 MG 1 tablet Oral Once a day for 30 days Active predniSONE 5 MG TAKE 8 TABLETS BY MO [facility] FOR 3 DAYS THEN TAPER BY 1 TABLET A DAY UNTIL GONE Oral for 10 Days prn only Active Doxycycline Hyclate 100 MG Oral for 10 Days prn only Active Simvastatin 10 MG 1 tablet in the even ing Orally qd for 30 days Active Vitamin D3 2000 UNIT 2 tablets Orally On ce a day Active Problems Problem Type SNOMED Code ICD Code Onset Dates Problem Status W/U Status Risk Notes Problem Overweight (898680298) Overweight (E66.3) Active confirmed Problem 936459790 Mixed hyperlipidemia (E78.2) Active confirmed Problem Preoperative cardiovascular examination (981181342) Preop cardiovascular exam (Z01.810) Active confirmed Problem Prediabetes (269250365) Prediabetes (R73.09) Active confirmed Problem Parietoalveolar pneumopathy (78888993) Interstitial pulmonary disease (J84.9) Active confirmed Problem 083171450 Type 2 diabetes mellitus without complication, without long-term current use of insulin (E11.9) Active confirmed Problem 65823919 Labyrinthitis, unspecified laterality (H83.09) Active confirmed Plan Of Treatment Pending Test Test Name Order Date EKG 04/20/2019 stress echo w doppler 05/19/2023 Future Test Test Name Order Date HEMOGLOBIN A1c 08/18/2023 LIPID PANEL 08/18/2023 BASIC METABOLIC PANEL W/EGFR 08/18/2023 LIVER PANEL (HEPATIC FUNCTION PANEL) 03/2023 Insurance Providers Payer Name Payer Address Payer Phone Subscriber Number Group Number Insured Name Patient Relationship to Insured Coverage Start Date Coverage End Date [employer] [place] Part B [address] [place] [phone] [id number] Roney Pena Self - patient is the insured 3 [facility] USE THIS [address] [place] [address]40 [id number] Roney Pena Self - patient is the insured 4
--- OUTSIDE RECORDS SUMMARY | 2024-10-04 09:37 | XMS_ITS | Encounter Summary ---
Author Organization [facility] Address [address] [facility] [place] [address] Care Team Providers Care Easement Worker Name Role Phone Unavailable Primary Care Provider Unavailabl e Encounter Details Date Type Department Care Team (Late st Contact Info) Description 12/10/[address] 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 DermPath Lab Received: 12/11/2022 12:45 PM Pathologist: Saray Cordova MD Specimens: A) - Skin, left lateral cheek B) - Skin, right neck 12:32 PM CDT DERMATOPATHOLOGY LABORATORY Final Diagnosis Specimen A. 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 SKIN, right neck: SQUAMOUS CELL CARCINOMA IN SITU ARISING IN ASSOCIATION WITH AN INFLAMED SEBORRHEIC KERATOSIS (D04.4) (see microscopic description) 12:32 PM T DERMATOPATHOLOGY LABORATORY at 1232 CDT Clinical History A: R/O NMSC B: R/O MM 12:32 PM CDT DERMATOPATHOLOGY LABORATORY Gross Description Specimen A: Received is one formalin filled container labeled with the patient's name and designated left lateral cheek. The specimen consists of a shave biopsy measuring 6x5x2 mm. Jar 0+. Specimen B: Received is one formalin filled container labeled with the patient's name and designated right neck. The specimen consists of a shave biopsy measuring 6x5x1 mm. Jar 0. 12:32 PM CDT DERMATOPATHOLOGY LABORATORY Microscopic Description Specimen A. SKIN, left lateral cheek: Sections show superficial portions of an endo exophytic crateriform lesion with a keratotic plug, formed by confluent follicle-like structures with relatively large keratinocytes and neutrophilic abscesses. Specimen B. SKIN, right neck: The epidermis shows parakeratosis, full thickness disorderly maturation of keratinocytes, and dyskeratotic cells. There is hyperkeratosis, parakeratosis, papillomatosis, and acanthosis of the epidermis. There is a lymphohistiocytic infiltrate within the papillary dermis that is focally lichenoid. 12:32 PM CDT DERMATOPATHOLOGY LABORATORY Disclaimer An external and internal positive and negative controls are appropriate for the histochemical, immunohistochemical and immunofluorescence stain(s) in this case (if any), except where stated explicitly. The performance characteristics of the stain(s) cited in this report were developed and its performance characteristic determined by the Dermatopathology Laboratory at [facility], directed by Dr. Raymundo Forbes. These tests need not be, and therefore are not, approved by the [place] Food and Drug Administration. The tests are used for clinical purposes. Billing Codes Specimen Charges Stain Charges 29304 28539 1 1 3 12:32 PM CDT DERMATOPATHOLOGY LABORATORY Embedded Images 12:32 PM CDT DERMATOPATHOLOGY LABORATORY Pathology/Cytology TISSUE SPECIMEN FROM SKIN / Unknown 12/10/2022 10:42 AM CDT 12/11/2022 12:45 PM CDT Miscellaneous samples (specimen) TISSUE SPECIMEN FROM SKIN / Unknown 12/10/2022 10:42 AM CDT 12/11/2022 12:45 PM CDT us Jelena Camargo DO LAB - PATHOLOGY/CYTOLOGY ORDERABLES Final Result DERMATOPATHOLOGY LABORATORY [facility] - Department of Dermatology [address], [address] [phone] documented in this encounter Visit Diagnoses Not on filedocumented in this encounter
--- OUTSIDE RECORDS SUMMARY | 2024-10-04 09:37 | XMS_ITS | Encounter Summary ---
Author Organization [facility] Address [address] [facility] [place] [address] Care Team Providers Care Buckle Stapler Name Role Phone Unavailable Primary Care Provider Unavailabl e Encounter Details Date Type Department Care Team (Late st Contact Info) Description 01/01/2023 Lab Requisition [facility] - DermPath Lab [address] [facility] [place] [phone] Jelena Camargo DO [address] 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 Gender Identity Not on file Sexual Orientation Not on file documented as of this encounter Plan of Treatment Not on file documented as of this encounter Procedures Procedure Name Priority Date/Time Associated Diagnosis Comments DERMATOPATHOLOGY Routine 01/01/2023 1:03 PM WARP DRAWER documented in this encounter Results * DERMATOPATHOLOGY (01/01/2023 1:03 PM WARP DRAWER) Case Report Dermatopathology Report Case: [id number] Authorizing Provider: Jelena Camargo DO Collected: 01/01/2023 01:03 PM Ordering Location: [facility] DermPath Lab Received: 01/03/2023 06:46 AM Pathologist: Saray Cordova MD Specimen: Skin, right neck 1:40 PM [facility] DERMATOPATHOLOGY LABORATORY Final Diagnosis Specimen A. SKIN, right neck: ACTINIC KERATOSES, MULTIFOCAL (L57.0) DERMAL SCAR RESIDUAL SQUAMOUS CELL CARCINOMA NOT IDENTIFIED (L90.5) (see microscopic description) 1:40 PM [facility] DERMATOPATHOLOGY LABORATORY at 1340 WARP DRAWER Clinical History SCC 1:40 PM [facility] DERMATOPATHOLOGY LABORATORY Gross Description Specimen A: Received is one formalin filled container labeled with the patient's name and designated right neck. The specimen consists of a non-oriented ellipse of skin measuring 56h14i6 mm. Also, there a lesion measuring 5x5 mm. The margin is inked green. The 12 o'clock and 6 o'clock tips are submitted in cassette 1. The remainder of the ellipse is serially sectioned and submitted in cassette 2 - 3. Jar 0. 1:40 PM [facility] DERMATOPATHOLOGY LABORATORY Microscopic Description Specimen A. SKIN, right neck: There is focal parakeratosis. In multiple foci, the lower half of the epidermis shows disorderly maturation of keratinocytes with nuclear pleomorphism. This lesion is present at one tip of the specimen and at one lateral margin of the specimen. There are fibroblasts and collagen bundles oriented parallel to the skin surface. There are elongated blood vessels, some of which are oriented perpendicular to the skin surface. No residual squamous cell carcinoma is identified. 1:40 PM [facility] DERMATOPATHOLOGY LABORATORY Disclaimer An external and internal positive and negative controls are appropriate for the histochemical, immunohistochemical and immunofluorescence stain(s) in this case (if any), except where stated explicitly. The performance characteristics of the stain(s) cited in this report were developed and its performance characteristic determined by the Dermatopathology Laboratory at [facility], directed by Dr. Raymundo Forbes. These tests need not be, and therefore are not, approved by the [place] Food and Drug Administration. The tests are used for clinical purposes. Billing Codes Specimen Charges Stain Charges 80095 1 3 1:40 PM [facility] DERMATOPATHOLOGY LABORATORY Embedded Images 1:40 PM [facility] DERMATOPATHOLOGY LABORATORY Pathology/Cytolo gy TISSUE SPECIMEN FROM SKIN / Unknown 01/01/2023 1:03 PM WARP DRAWER 01/03/2023 6:46 AM WARP DRAWER us Jelena Camargo DO LAB - PATHOLOGY/CYTOLOGY ORDERABLES Final Result DERMATOPATHOLOGY LABORATORY [facility] - Department of Dermatology [facility] [address] [place] [address], [address] [phone] documented in this encounter Visit Diagnoses Not on filedocumented in this encounter
--- NOTE | 2024-10-04 09:40 | NEURO_ITS ---
Impression: # Pre-diabetic complains of numbness/tremors ? # No Carpal Tunnel Syndrome ? # Mild Ulnar Neuropathy across the elbow ? # Normal Needle/ EMG exam without neurogenic changes ? # Clinical correlation recommended Nerve Conduction Studies ?Stim Site NR Peak (ms) P-T Amp (?V) Site1 Site2 Delta-P (ms) Dist (cm) Emeka (m/s) Left Median Anti Sensory (2-3nd Digit) Wrist ? 3.3 15.9 Wrist 2-3nd Digit 3.3 14.0 42 Wrist ? 3.3 16.5 Wrist 2-3nd Digit 3.3 14.0 42 Right Median Anti Sensory (2-3nd Digit) Wrist ? 3.2 14.8 Wrist 2-3nd Digit 3.2 14.0 44 Wrist ? 3.2 13.6 Wrist 2-3nd Digit 3.2 14.0 44 Left Radial Anti Sensory (Base 1st Digit) Wrist ? 2.1 12.8 Wrist Base 1st Digit 2.1 0.0 Right Radial Anti Sensory (Base 1st Digit) Wrist ? 2.3 9.0 Wrist Base 1st Digit 2.3 0.0 Left Ulnar Anti Sensory (5th Digit) Wrist ? 3.0 21.3 Wrist 5th Digit 3.0 14.0 47 Right Ulnar Anti Sensory (5th Digit) Wrist ? 3.0 10.1 Wrist 5th Digit 3.0 14.0 47 ?Stim Site NR Onset (ms) O-P Amp (mV) Site1 Site2 Delta-0 (ms) Dist (cm) Emeka (m/s) Left Median Motor (Abd Poll Brev) Wrist ? 3.8 3.4 Elbow Wrist 6.4 34.0 53 Elbow ? 10.2 1.8 Right Median Motor (Abd Poll Brev) Wrist ? 3.2 2.4 Elbow Wrist 7.1 31.0 44 Elbow ? 10.3 1.5 Left Ulnar Motor (Abd Dig Minimi) Wrist ? 3.3 4.4 A Elbow Wrist 6.5 33.0 51 A Elbow ? 9.8 4.0 B Elbow Wrist 4.7 25.0 53 B Elbow ? 8.0 4.0 Right Ulnar Motor (Abd Dig Minimi) Wrist ? 3.0 6.1 A Elbow Wrist 5.9 32.0 54 A Elbow ? 8.9 5.2 B Elbow Wrist 4.0 24.0 60 B Elbow ? 7.0 5.5 F Wave Studies ?NR F-Lat (ms) L-R F-Lat (ms) Left Median (Mrkrs) (Abd Poll Brev) ? 32.93 1.60 Right Median (Mrkrs) (Abd Poll Brev) ? 31.33 1.60 Left Ulnar (Mrkrs) (Abd Dig Min) ? 33.64 1.28 Right Ulnar (Mrkrs) (Abd Dig Min) ? 32.36 1.28 Electromyography ?Side Muscle Nerve Root Ins Act Fibs Amp Dur Recrt Comment Right 1stDorInt Ulnar C8-T1 Nml Nml Nml Nml Nml Right Ext Indicis Radial (Post Int) C7-8 Nml Nml Nml Nml Nml Right Ext Digitorum Radial (Post Int) C7-8 Nml Nml Nml Nml Nml Right BrachioRad Radial C5-6 Nml Nml Nml Nml Nml Right PronatorTeres Median C6-7 Nml Nml Nml Nml Nml Right Abd Poll Brev Median C8-T1 Nml Nml Nml Nml Nml Right ABD Dig Min Ulnar C8-T1 Nml Nml Nml Nml Nml Right FlexPolLong Median (Ant Int) C7-8 Nml Nml Nml Nml Nml Right Abd Poll Long Radial (Post Int) C7-8 Nml Nml Nml Nml Nml Left 1stDorInt Ulnar C8-T1 Nml Nml Nml Nml Nml Left Ext Indicis Radial (Post Int) C7-8 Nml Nml Nml Nml Nml Left Ext Digitorum Radial (Post Int) C7-8 Nml Nml Nml Nml Nml Left BrachioRad Radial C5-6 Nml Nml Nml Nml Nml Left PronatorTeres Median C6-7 Nml Nml Nml Nml Nml Left Abd Poll Brev Median C8-T1 Nml Nml Nml Nml Nml Left ABD Dig Min Ulnar C8-T1 Nml Nml Nml Nml Nml Left FlexPolLong Median (Ant Int) C7-8 Nml Nml Nml Nml Nml Left Abd Poll Long Radial (Post Int) C7-8 Nml Nml Nml Nml Nml
== END 2024-10-04 09:16 | disposition home or self-care (01) ==
LOC: ANHNEURO 09:17
PROVIDERS: PCP Family Medicine; Visit Provider Family Medicine
DX: R25.1 Tremor, unspecified (principal)
CPT/HCPCS: 95886; 95911